=== PATIENT | female | born 1940 | race American Indian/Alaskan Native ===

== ENCOUNTER 2017-04-26 13:52 | Emergency (ER) | payer MEDICARE, MEDICAID ==
[2017-04-26 13:53] VITALS: BMI 31.2
[2017-04-26 14:06] VITALS: TEMP 97.9
--- NOTE | 2017-04-26 15:04 | ED PDOC ---
Arrival/HPI <Leeroy Belle - Last Filed: 04/26/17 18:21> <ElenaIsaiah - Last Filed: 04/26/17 19:18> - General Chief Complaint: ENT Problem Time Seen by Provider: 04/26/17 14:51 - History of Present Illness Narrative History of Present Illness (Text): CC: Pain behind R ear and Gland swelling on R x 1 d This patient is a 76yo F w/ a PMhx of DM, HTN, HLD, previous stroke with intermittent left sided upper extremity defecits, previous AL 30 years ago, who is coming to the ED after 1d history of the above complaint. She denies fevers/ chills, MANZANO, CP, SOB, abdominal pain, N/V/D, dysuria/freq/urg or lower extremity pain/swelling. She has no sick contacts. Denies pus coming from ear. Denies pain in earlobe. denies changes in hearing. 04/26/17 15:02 (Leeroy Belle) Past Medical History - Provider Review Nursing Documentation Reviewed: Yes - Travel History Have you recently traveled outside [place] w/in the past 3 mons?: No - Past History Past History: No Previous - Infectious Disease Hx of Infectious Diseases: None - Tetanus Immunization Tetanus Immunization: Unknown - Cardiac Hx Cardiac Disorders: Yes Hx Hypertension: Yes - Pulmonary Hx Respiratory Disorders: Yes Hx Asthma: Yes - Neurological Hx Neurological Disorder: No - HEENT Hx HEENT Disorder: No - Renal Hx Renal Disorder: No Hx Dialysis: No Hx Kidney Stones: No - Endocrine/Metabolic Hx Endocrine Disorders: Yes Hx Diabetes Mellitus Type 2: Yes Hx Hypothyroidism: Yes - Hematological/Oncological Hx Blood Disorders: No - Integumentary Hx Dermatological Disorder: No - Musculoskeletal/Rheumatological Hx Musculoskeletal Disorders: No - Gastrointestinal Hx Gastrointestinal Disorders: No - Genitourinary/Gynecological Hx Genitourinary Disorders: No - Psychiatric Hx Psychophysiologic Disorder: No Hx Anxiety: No Hx Depression: No Hx Substance Use: No - Surgical History Other/Comment: right breast cyst removal - Anesthesia Hx Anesthesia: Yes Hx Anesthesia Reactions: No Hx Malignant Hyperthermia: No - Suicidal Assessment Feels Threatened In Home Enviroment: No <Leeroy Belle - Last Filed: 04/26/17 18:21> Family/Social History - Physician Review Nursing Documentation Reviewed: Yes Family/Social History: CVA/TIA, Diabetes, Hypertension, CAD/AL Smoking Status: Never Smoked Hx Alcohol Use: No Hx Substance Use: No Hx Substance Use Treatment: No <Leeroy Belle - Last Filed: 04/26/17 18:21> Allergies/Home Meds <Leeroy Belle - Last Filed: 04/26/17 18:21> <ElenaRupeshsocrates - Last Filed: 04/26/17 19:18> Allergies/Adverse Reactions: Allergies No Known Allergies Allergy (Verified 04/26/17 14:05) Home Medications: Home Meds Medication Instructions Recorded Confirmed Fluticasone Propionate [Flovent 2 puff IH PRN PRN 10/10/14 04/26/17 Hfa] Levothyroxine [Synthroid] 0.075 mg PO DAILY 10/10/14 04/26/17 Metoprolol Tartrate [Lopressor] 25 mg PO BID 02/14/16 04/26/17 SITagliptin [Januvia] 50 mg PO DAILY 02/14/16 04/26/17 Valsartan [Diovan] 160 mg PO DAILY 02/14/16 04/26/17 Aspirin [Aspirin Chewable] 81 mg PO DAILY 04/26/17 04/26/17 Ranolazine [Ranexa] 0 mg PO DAILY 04/26/17 04/26/17 Review of Systems - Review of Systems Constitutional: absent: Fatigue, Weight Change Eyes: absent: Vision Changes ENT: TMJ Pain. absent: Hearing Changes, Tinnitus, Voice Changes, Sore Throat, Rhinorrhea, Epistaxis, Sinus Congestion Respiratory: absent: SOB, Cough, Sputum Cardiovascular: absent: Chest Pain, Palpitations Gastrointestinal: absent: Abdominal Pain Genitourinary Female: absent: Dysuria, Frequency Musculoskeletal: absent: Arthralgias, Back Pain Skin: absent: Rash, Pruritis, Skin Lesions Neurological: absent: Headache, Dizziness, Focal Weakness, Speech Changes, Facial Droop, Disequilibrium, Seizure Endocrine: absent: Diaphoresis Hemo/Lymphatic: absent: Adenopathy Psychiatric: absent: Anxiety, Depression <Leeroy Belle - Last Filed: 04/26/17 18:21> Physical Exam Vital Signs Reviewed: Yes Temperature: Afebrile Blood Pressure: Normal Pulse: Regular Respiratory Rate: Normal Appearance: Positive for: Well-Appearing, Non-Toxic, Comfortable Pain Distress: None Mental Status: Positive for: Alert and Oriented X 3 - Systems Exam Head: Present: Atraumatic, Normocephalic, Tenderness (behind the right ear on the mastoid, parotid enlargement and tenderness to palpation) Pupils: Present: PERRL Extroacular Muscles: Present: EOMI Conjunctiva: Present: Normal Ears: Present: NORMAL TM Mouth: Present: Moist Mucous Membranes. No: Dry, Normal Teeth Pharnyx: No: ERYTHEMA, EXUDATE, TONSILS ENLARGED Nose (External): No: Atraumatic Neck: Present: Normal Range of Motion, Lymphadenopathy (right parotid gland ). No: Meningeal Signs, MIDLINE TENDERNESS, Paraspinal Tenderness, JVD Respiratory/Chest: Present: Clear to Auscultation, Good Air Exchange. No: Respiratory Distress Cardiovascular: Present: Regular Rate and Rhythm, Normal S1, S2. No: Murmurs Abdomen: Present: Normal Bowel Sounds. No: Tenderness, Distention, Peritoneal Signs Back: No: CVA Tenderness Upper Extremity: Present: Normal Inspection. No: Cyanosis, Edema Lower Extremity: Present: Normal Inspection. No: Edema, CALF TENDERNESS Neurological: Present: GCS=15, CN II-XII Intact, Speech Normal Skin: Present: Warm Psychiatric: Present: Alert <Leeroy Belle - Last Filed: 04/26/17 18:21> Vital Signs Temp Pulse Resp BP Pulse Ox 04/26/17 18:02 63 16 140/70 100 04/26/17 16:15 60 18 150/93 H 100 04/26/17 14:02 97.9 F 75 16 149/88 98 Medical Decision Making <Leeroy Belle - Last Filed: 04/26/17 18:21> <Isaiah Parker - Last Filed: 04/26/17 19:18> ED Course and Treatment: 04/26/17 15:05 DDX Mastoiditis vs Sialadenitis Maxillofacial CT and Mastoid CT w/ Contrast CBC CMP VBG Lactate and Blood cultures patient is comfortable with normal VSS dispo and reassess 04/26/17 15:35 VBG lactate WNL 04/26/17 16:06 FLAKO; will change CT to non contrast still pending non contrast negative GRPA strep blood work unremarkable 04/26/17 17:35 patient was requesting to leave [facility] because son needs to leave and patient does not have enough money for a cab to get back patient is still undecided about wanting to leave or not will reassess 04/26/17 18:21 CT Scan negative for mastoiditis Will send on Augmentin 875 BID for 7 days Will give ENT follow up patient is stable for discharge as per Dr. Parker sent IGG IGM for Mumps; patient can follow up for results does not hold her for discharge (Leeroy Belle) 04/26/17 19:14 Patient with noted history with area of noted swelling; imaging is nondiagnostic - will dc/ on augmentin and f/u ENT. (Isaiah Parker) - Lab Interpretations Lab Results: 04/26/17 15:15 04/26/17 15:15 Lab Results 04/26/17 15:15: Grp A Beta Strep Ag Negative 04/26/17 15:15: Sodium 143, Chloride 103, Potassium 4.3, Carbon Dioxide 30, Anion Gap 14, BUN 17, Creatinine 1.4 H, Est GFR ( Amer) 44, Est GFR (Non- Af Amer) 36, Random Glucose 145 H, Calcium 10.2, Total Bilirubin 0.9, AST 33, ALT 35, Alkaline Phosphatase 83, Total Protein 8.3, Albumin 4.7, Globulin 3.6, Albumin/Globulin Ratio 1.3 04/26/17 15:15: pO2 24 L, VBG pH 7.33, VBG pCO2 58.0, VBG HCO3 30.6 H, VBG Total CO2 32.4 H, VBG O2 Sat (Calc) 44.6, VBG Base Excess 3.2 H, VBG Potassium 4.3, Sodium 141.0, Chloride 106.0, Glucose 142 H, Lactate 1.0, FiO2 21.0, Venous Blood Potassium 4.3 04/26/17 15:15: WBC 5.3 D, RBC 4.04, Hgb 13.3, Hct 39.7, MCV 98.3, MCH 32.9, MCHC 33.5, RDW 13.2, Plt Count 252, MPV 9.3, Gran % 56.0, Lymph % (Auto) 32.6, [place] % (Auto) 7.4 H, Eos % (Auto) 3.8, Baso % (Auto) 0.2, Gran # 2.95, Lymph # 1.7, [place] # 0.4, Eos # 0.2, Baso # 0.01 - RAD Interpretation Radiology Orders: 04/26/17 16:06 MASTOIDS W/O CONTRAST [CT] Stat MAXILLOFACIAL W/O CONTRAST [CT] Stat - Medication Orders Current Medication Orders: Discontinued Medications Acetaminophen (Tylenol 325mg Tab) 975 mg PO STAT STA Stop: 04/26/17 16:25 Last Admin: 04/26/17 16:33 Dose: 975 mg - PA / 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 / has examined the patient and agrees with the treatment plan. <Isaiah Parker - Last Filed: 04/26/17 19:18> Disposition/Present on Arrival - Present on Arrival Any Indicators Present on Arrival: No History of DVT/PE: No History of Uncontrolled Diabetes: No Urinary Catheter: No History of Decub. Ulcer: No History Surgical Site Infection Following: None - Disposition Have Diagnosis and Disposition been Completed?: Yes Disposition Time: 18:22 Patient Plan: Discharge <Leeroy Belle - Last Filed: 04/26/17 18:21> <Isaiah Parker - Last Filed: 04/26/17 19:18> - Disposition Diagnosis: Sialadenitis Disposition: HOME/ ROUTINE Condition: FAIR Discharge Instructions (ExitCare): Sialoadenitis (ED) Additional Instructions: Please make sure to taken your Augmentin, twice a day, for 7 days, until all the pills are gone Also take Florastor, probiotic, daily, to prevent infectious diarrhea while on antibiotics Please follow up with ENT and your PMD It was a pleasure taking care of you Please feel better Prescriptions: Amoxicillin/Clavulanate [Augmentin 875 MG-125 MG] 1 tab PO BID 7 Days #14 tab Saccharomyces Boulardii [Florastor 33 mg-250 mg] 1 cap PO DAILY 7 Days #7 cap Referrals: PCP,NO [Primary Care Provider] - Follow up with primary Forms: [employer] (Turkish)
[2017-04-26 15:30] LABS: VENOUS BLOOD GAS BASE EXCESS 3.2 mmol/L (0.0-2.0); VENOUS BLOOD PH 7.33 (7.32-7.43)
[2017-04-26 15:43] LABS: BASO # 0.01 K/mm3 (0.0-2.0); BASO % 0.2 % (0.0-3.0); EOS # 0.2 (0.0-0.7); EOS % 3.8 % (1.5-5.0); GRAN # 2.95 (1.4-6.5); HEMATOCRIT 39.7 % (36.0-48.0); LYMPH # 1.7 (1.2-3.4); LYMPH % 32.6 % (22.0-35.0); MEAN CELL VOLUME 98.3 fl (80.0-105.0); MEAN CORPUSCULAR HEMOGLOBIN 32.9 pg (25.0-35.0); MEAN CORPUSCULAR HGB CONC 33.5 g/dl (31.0-37.0); MEAN PLATELET VOLUME 9.3 fl (7.0-11.0); MONO # 0.4 (0.1-0.6); MONO % 7.4 % (1.0-6.0); RED CELL DISTRIBUTION WIDTH 13.2 % (11.5-14.5); WHITE BLOOD COUNT 5.3 10^3/ul (4.5-11.0)
[2017-04-26 15:47] LABS: ALB/GLOB RATIO 1.3 (1.1-1.8); BILIRUBIN,TOTAL 0.9 mg/dL (0.2-1.3); CALCIUM 10.2 mg/dL (8.4-10.5); POTASSIUM 4.3 mmol/L (3.6-5.0); TOTAL PROTEIN 8.3 g/dL (5.8-8.3)
[2017-04-26 16:16] VITALS: O2SAT 100
[2017-04-26 18:05] VITALS: BP 140/70; PULSE 63; RESP 16
--- NOTE | 2017-04-26 18:10 | CT ---
PROCEDURE: CT MAXILLOFACIAL BONES WITHOUT CONTRAST HISTORY: ear pain COMPARISON: None TECHNIQUE: Contiguous axial CT images of the maxillofacial bones were obtained. Coronal and sagittal reformats were generated. Radiation dose: Total exam DLP = 793.07 mGy-cm. This CT exam was performed using one or more of the following dose reduction techniques: Automated exposure control, adjustment of the mA and/or kV according to patient size, and/or use of iterative reconstruction technique. FINDINGS: NASAL BONES: The nasal bones are intact. ORBITS: No evidence of orbital fracture or destructive lesion. . PARANASAL SINUSES/ MASTOIDS: The paranasal sinuses are well developed and well aerated without fluid level. There is a small retention cyst/ polyp in the left maxillary sinus. MAXILLA: No acute maxillofacial fracture or destructive bony lesion. The pre maxillary soft tissues are normal. MANDIBLE/ TEMPOROMANDIBULAR JOINTS: No evidence of mandibular fracture or bony lesion. 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 SKULL BASE: Unremarkable. TEMPORAL BONES: Middle ears and mastoid grossly unremarkable. OTHER FINDINGS: None. IMPRESSION: No evidence of acute sinusitis, facial cellulitis or any significant abnormality to explain patient's ear pain.
--- NOTE | 2017-04-26 18:14 | CT ---
PROCEDURE: CT OF THE TEMPORAL BONES WITHOUT CONTRAST HISTORY: ear pain COMPARISON: None available. TECHNIQUE: High resolution axial images of the temporal bones were obtained. Coronal and sagittal reformats were generated. Radiation dose: Total exam DLP = 499.44 mGy-cm. This CT exam was performed using one or more of the following dose reduction techniques: Automated exposure control, adjustment of the mA and/or kV according to patient size, and/or use of iterative reconstruction technique. FINDINGS: RIGHT TEMPORAL BONE: RIGHT MIDDLE EAR: Normal. RIGHT INNER EAR: Cochlea: Normal. Semicircular canals: Normal. RIGHT MASTOID AIR CELLS: Normal. RIGHT INTERNAL AUDITORY CANAL: Normal. RIGHT EXTERNAL AUDITORY CANAL: Normal. RIGHT VESTIBULAR AND COCHLEAR AQUEDUCT: Normal. OTHER FINDINGS: None. LEFT TEMPORAL BONE: LEFT MIDDLE EAR: Normal. LEFT INNER EAR: Cochlea: Normal. Semicircular canals: Normal. LEFT MASTOID AIR CELLS: Normal. LEFT INTERNAL AUDITORY CANAL: Normal. LEFT EXTERNAL AUDITORY CANAL: Normal. LEFT VESTIBULAR AND COCHLEAR AQUEDUCTS: Normal. OTHER FINDINGS: None. IMPRESSION: No evidence of acute mastoiditis, otitis media or otitis externa. Essentially normal CT scan of the mastoids.
== END 2017-04-26 18:31 | disposition home or self-care (01) ==
LOC: ED 13:52
DX: K11.20 Sialoadenitis, unspecified (principal); E03.9 Hypothyroidism, unspecified; E11.9 Type 2 diabetes mellitus without complications; E78.5 Hyperlipidemia, unspecified; I10 Essential (primary) hypertension

== ENCOUNTER 2017-07-24 13:36 | Emergency (ER) | payer MEDICARE, MEDICAID ==
[2017-07-24 14:15] VITALS: BMI 28.3
[2017-07-24 14:26] VITALS: RESP 18
[2017-07-24] MEDS ORDERED: Albuterol 0.5% Inhal Sol (2.5 mg/0.5 ml) UD IH STA (14:43)
--- NOTE | 2017-07-24 15:03 | ED PDOC ---
Arrival/HPI - General Chief Complaint: Flu-like Symptoms Time Seen by Provider: 07/24/17 14:20 Historian: Patient - History of Present Illness Narrative History of Present Illness (Text): 07/24/17 14:20 Christopher oMntes is a 77 year old female, whose past medical history includes diabetes, hypertension, hypothyroidism, high cholesterol, CVA (left arm weakness residual), UT, and asthma, who presents to emergency department complaining of coughing with intermittent episodes of vomiting and diarrhea, rhinorrhea, and slight fever for the past 3 days. Patient denies any chest pain , shortness of breath, urinary symptoms, back pain, neck pain, headache, dizziness, or any other complaints. PMD: Dr. Mariscal Time/Duration: < week Symptom Onset: Gradual Symptom Course: Unchanged Severity Level: Mild Activities at Onset: Light Context: Home Past Medical History - Provider Review Nursing Documentation Reviewed: Yes - Past History Past History: No Previous - Infectious Disease Hx of Infectious Diseases: None - Tetanus Immunization Tetanus Immunization: Unknown - Reproductive Menopause: Yes - Cardiac Hx Cardiac Disorders: Yes Hx Hypertension: Yes - Pulmonary Hx Respiratory Disorders: Yes Hx Asthma: Yes - Neurological Hx Neurological Disorder: No - HEENT Hx HEENT Disorder: No - Renal Hx Renal Disorder: No Hx Dialysis: No Hx Kidney Stones: No - Endocrine/Metabolic Hx Endocrine Disorders: Yes Hx Diabetes Mellitus Type 2: Yes Hx Hypothyroidism: Yes - Hematological/Oncological Hx Blood Disorders: No - Integumentary Hx Dermatological Disorder: No - Musculoskeletal/Rheumatological Hx Musculoskeletal Disorders: No - Gastrointestinal Hx Gastrointestinal Disorders: No - Genitourinary/Gynecological Hx Genitourinary Disorders: No - Psychiatric Hx Psychophysiologic Disorder: No Hx Anxiety: No Hx Depression: No Hx Substance Use: No - Surgical History Other/Comment: right breast cyst removal - Anesthesia Hx Anesthesia: Yes Hx Anesthesia Reactions: No Hx Malignant Hyperthermia: No - Suicidal Assessment Feels Threatened In Home Enviroment: No Family/Social History - Physician Review Nursing Documentation Reviewed: Yes Family/Social History: No Known Family HX Smoking Status: Never Smoked Hx Alcohol Use: No Hx Substance Use: No Hx Substance Use Treatment: No Allergies/Home Meds Allergies/Adverse Reactions: Allergies No Known Allergies Allergy (Verified 07/24/17 14:21) Home Medications: Home Meds Medication Instructions Recorded Confirmed Fluticasone Propionate [Flovent 2 puff IH PRN PRN 10/10/14 07/24/17 Hfa] Levothyroxine [Synthroid] 0.075 mg PO DAILY 10/10/14 07/24/17 Metoprolol Tartrate [Lopressor] 25 mg PO BID 02/14/16 07/24/17 SITagliptin [Januvia] 50 mg PO DAILY 02/14/16 07/24/17 Valsartan [Diovan] 160 mg PO DAILY 02/14/16 07/24/17 Aspirin [Aspirin Chewable] 81 mg PO DAILY 04/26/17 07/24/17 Ranolazine [Ranexa] 0 mg PO DAILY 04/26/17 07/24/17 Review of Systems - Physician Review All systems were reviewed & negative as marked: Yes - Review of Systems Constitutional: Fevers Eyes: absent: Vision Changes ENT: Rhinorrhea. absent: Hearing Changes Respiratory: Cough. absent: SOB Cardiovascular: absent: Chest Pain Gastrointestinal: Diarrhea, Vomiting Genitourinary Female: absent: Dysuria, Frequency Musculoskeletal: absent: Arthralgias Skin: absent: Rash, Pruritis Neurological: absent: Headache, Dizziness Endocrine: absent: Diaphoresis, Polyuria Hemo/Lymphatic: absent: Adenopathy Psychiatric: absent: Anxiety, Depression Physical Exam Vital Signs Reviewed: Yes Vital Signs Temp Pulse Resp BP Pulse Ox 07/24/17 16:44 99.2 F 76 18 145/88 97 07/24/17 15:31 81 18 153/68 H 100 07/24/17 14:18 100.1 F H 97 H 18 155/101 H 99 Temperature: Febrile Blood Pressure: Hypertensive Pulse: Regular Respiratory Rate: Normal Appearance: Positive for: Well-Appearing, Non-Toxic, Comfortable Mental Status: Positive for: Alert and Oriented X 3 - Systems Exam Head: Present: Atraumatic, Normocephalic Pupils: Present: PERRL Extroacular Muscles: Present: EOMI Conjunctiva: Present: Normal Mouth: Present: Moist Mucous Membranes Pharnyx: Present: Normal, Other (MMM). No: ERYTHEMA, EXUDATE Nose (Internal): Present: Other (nasal congestion) Neck: Present: Normal Range of Motion Respiratory/Chest: Present: Clear to Auscultation, Good Air Exchange. No: Respiratory Distress, Accessory Muscle Use Cardiovascular: Present: Regular Rate and Rhythm, Normal S1, S2. No: Murmurs Abdomen: Present: Normal Bowel Sounds. No: Tenderness, Distention, Peritoneal Signs Back: Present: Normal Inspection Upper Extremity: Present: Normal Inspection. No: Cyanosis, Edema Lower Extremity: Present: Normal Inspection. No: Edema Neurological: Present: GCS=15, CN II-XII Intact, Speech Normal Skin: Present: Warm, Dry, Normal Color. No: Rashes Psychiatric: Present: Alert, Oriented x 3, Normal Insight, Normal Concentration Medical Decision Making ED Course and Treatment: 07/24/17 15:04 Impression: 77 year old female complaining of multiple episodes of vomiting and coughs with associated diarrhea, rhinorrhea, and slight fever for the past 3 days. Differential Diagnosis included but are not limited to: Influenza Plan: -- EKG -- Chest X-ray -- Blood Culture -- Labs -- Albuterol and Zofran -- Reassess and disposition Prior Visits: Notes and results from previous visits were reviewed. Patient was last seen in the emergency department on 04/26/17 for intermittent left sided upper extremity defecits. Patient was discharged home. Progress Notes: EKG: Ordered, reviewed, and independently interpreted the EKG. Rate : 87 BPM Rhythm : NSR Interpretation : No ST-segment elevations or depressions, no T-wave inversions, normal intervals. Comparison : No previous EKG for comparison. 07/24/17 15:10 Chest X-ray: Creator : Muna Luong MD FINDINGS: LUNGS:The lungs are well inflated and clear. PLEURA:No significant pleural effusion identified, no pneumothorax apparent. CARDIOVASCULAR:Normal. OSSEOUS STRUCTURES:No significant abnormalities. VISUALIZED UPPER ABDOMEN:Normal. OTHER FINDINGS:None. IMPRESSION: No active pulmonary disease. 07/24/17 16:16 On reevaluation, Patient's lungs continue to be clear, no wheezing, no rhonchi, no rales. Oxy sat 97% RA. Clear instructions to stay well hydrated and to take Tamiflu and Tylenol for fever. Also to return if patient experienced respiratory distress or any concerns. - Lab Interpretations Lab Results: 07/24/17 15:33 07/24/17 15:33 Lab Results 07/24/17 15:33: Influenza Typ A,B (EIA) Pos for influenza a H 07/24/17 15:33: Sodium 137, Potassium 4.2, Chloride 100, Carbon Dioxide 26, Anion Gap 15, BUN 13, Creatinine 1.1, Est GFR ( Amer) 58, Est GFR (Non- Af Amer) 48, Random Glucose 173 H, Calcium 9.3 07/24/17 15:33: WBC 3.8 L D, RBC 3.78, Hgb 12.2, Hct 36.8, MCV 97.4, MCH 32.3, MCHC 33.2, RDW 13.2, Plt Count 191, MPV 9.7, Gran % 66.7, Lymph % (Auto) 18.3 L , [place] % (Auto) 14.7 H, Eos % (Auto) 0.0 L, Baso % (Auto) 0.3, Gran # 2.55, Lymph # 0.7 L, [place] # 0.6, Eos # 0.0, Baso # 0.01 07/24/17 15:28: POC Glucose (mg/dL) 176 H I have reviewed the lab results: Yes - RAD Interpretation Radiology Orders: 07/24/17 14:27 CHEST PORTABLE [RAD] Stat - Medication Orders Current Medication Orders: Discontinued Medications Albuterol Sulfate (Albuterol 0.5% Inhal Ana (2.5 Mg/0.5 Ml) Ud) 2.5 mg IH STAT STA Stop: 07/24/17 14:44 Last Admin: 07/24/17 15:16 Dose: 2.5 mg Ondansetron HCl (Zofran Inj) 4 mg IVP STAT STA Stop: 07/24/17 14:46 Last Admin: 07/24/17 15:16 Dose: 4 mg IVP Administration Document 07/24/17 15:16 OCS (Rec: 07/24/17 15:16 [facility]CS [id number]) Charges for Administration # of IVP Administrations 1 Oseltamivir Phosphate (Tamiflu Cap) 75 mg PO STAT STA PRN Reason: Protocol Stop: 07/24/17 16:14 Last Admin: 07/24/17 16:35 Dose: 75 mg - Scribe Statement The provider has reviewed the documentation as recorded by the Scribe Amrita Crystal Provider Scribe Attestation: All medical record entries made by the Scribe were at my direction and personally dictated by me. I have reviewed the chart and agree that the record accurately reflects my personal performance of the history, physical exam, medical decision making, and the department course for this patient. I have also personally directed, reviewed, and agree with the discharge instructions and disposition. Disposition/Present on Arrival - Present on Arrival Any Indicators Present on Arrival: No History of DVT/PE: No History of Uncontrolled Diabetes: No Urinary Catheter: No History of Decub. Ulcer: No History Surgical Site Infection Following: None - Disposition Have Diagnosis and Disposition been Completed?: Yes Diagnosis: Influenza Disposition: HOME/ ROUTINE Disposition Time: 16:30 Patient Plan: Discharge Condition: IMPROVED Discharge Instructions (ExitCare): Influenza (ED) Additional Instructions: Ms Montes, thank you for letting us take care of you today. Your provider was Dr. Taylor. You were treated for Influenza. The emergency medical care you received today was directed at your acute symptoms. If you were prescribed any medication, please fill it and take as directed. It may take several days for your symptoms to resolve. Return to the Emergency Department if your symptoms worsen, do not improve, or if you have any other problems. Please contact your doctor or call one of the physicians/clinics you have been referred to that are listed on the Patient Visit Information form that is included in your discharge packet. Bring any paperwork you were given at discharge with you along with any medications you are taking to your follow up visit. Our treatment cannot replace ongoing medical care by a primary care provider (PCP) outside of the emergency department. Thank you for allowing the [facility] team to be part of your care today. If you had an X-Ray or CT scan: A Radiologist will review the ED reading if any change in treatment is needed we will contact you. If you had a blood, urine, or wound culture: It will take several days for the results, if any change in treatment is needed we will contact you. If you had an STI test: It will take 48 hours for the results. Please call after 1 week if you have not heard back. Prescriptions: Acetaminophen [Tylenol 325mg tab] 650 mg PO Q4 #60 tab Oseltamivir Phosphate [Tamiflu] 75 mg PO BID #10 capsule Referrals: Navneet Mariscal DO [Primary Care Provider] - Follow up with primary Forms: [employer] (Mexican)
--- NOTE | 2017-07-24 15:08 | RAD ---
HISTORY: cough r/o pna COMPARISON: 02/14/2016. FINDINGS: LUNGS: The lungs are well inflated and clear. PLEURA: No significant pleural effusion identified, no pneumothorax apparent. CARDIOVASCULAR: Normal. OSSEOUS STRUCTURES: No significant abnormalities. VISUALIZED UPPER ABDOMEN: Normal. OTHER FINDINGS: None. IMPRESSION: No active pulmonary disease.
[2017-07-24 15:48] LABS: BASO # 0.01 K/mm3 (0.0-2.0); BASO % 0.3 % (0.0-3.0); GRAN # 2.55 (1.4-6.5); GRAN % 66.7 % (50.0-68.0); HEMOGLOBIN 12.2 g/dL (12.0-16.0); LYMPH # 0.7 (1.2-3.4); LYMPH % 18.3 % (22.0-35.0); MEAN CELL VOLUME 97.4 fl (80.0-105.0); MEAN CORPUSCULAR HEMOGLOBIN 32.3 pg (25.0-35.0); MEAN CORPUSCULAR HGB CONC 33.2 g/dl (31.0-37.0); MEAN PLATELET VOLUME 9.7 fl (7.0-11.0); MONO # 0.6 (0.1-0.6); MONO % 14.7 % (1.0-6.0); RBC 3.78 10^6/uL (3.5-6.1); RED CELL DISTRIBUTION WIDTH 13.2 % (11.5-14.5); WHITE BLOOD COUNT 3.8 10^3/ul (4.5-11.0)
[2017-07-24 15:58] LABS: CALCIUM 9.3 mg/dL (8.4-10.5)
[2017-07-24 16:44] VITALS: BP 145/88; PULSE 76; TEMP 99.2; O2SAT 97
--- NOTE | 2017-07-24 18:04 | CARD ---
APPROVED REPORT EKG Measurement Heart [id number] <Conclusion> Normal sinus rhythm Minimal voltage criteria for LVH, may be normal variant Borderline ECG
== END 2017-07-24 16:45 | disposition home or self-care (01) ==
LOC: ED 13:36
DX: J11.1 Influenza due to unidentified influenza virus with other respiratory manifestations (principal); I10 Essential (primary) hypertension; E11.9 Type 2 diabetes mellitus without complications
CPT/HCPCS: 71045; 80048; 82948; 85025; 87040; 87804; 93005; 96374; 99283; J2405

== ENCOUNTER 2017-07-29 18:30 | Inpatient (IN) | payer OTHER, MEDICAID ==
[2017-07-29 18:44] VITALS: BMI 29.5
[2017-07-29] MEDS ORDERED: Loperamide Hydrochloride 1 mg/5 ml Cup PO PRN (18:49)
[2017-07-29] MEDS ORDERED: Albuterol-Ipratrop 3 mg / 0.5 (3 ml) UD IH PRN (18:49)
[2017-07-29] MEDS ORDERED: Pneumococcal 23-Valent Vaccine IM ONE (19:20)
[2017-07-29] MEDS ORDERED: Influenza Vaccine 60 mcg/0.5 mL SYR (4YR UP) IM ONE (19:20)
[2017-07-29] MEDS: Budesonide 0.5 mg/2 ml Inhal Susp UD IH SCH (20:58)
[2017-07-29] MEDS: Albuterol-Ipratrop 3 mg / 0.5 (3 ml) UD IH SCH (20:58)
[2017-07-29] MEDS: MethylPREDNISolone 40 mg Vial IVP SCH (21:27)
[2017-07-29] MEDS: Oseltamivir 6 MG/ML PO SCH (21:27)
[2017-07-29] MEDS: Insulin Reg-MEDIUM-Coverage SC SCH (21:28)
[2017-07-30] MEDS: Albuterol-Ipratrop 3 mg / 0.5 (3 ml) UD IH SCH ×4 (03:00→21:33)
[2017-07-30] MEDS: Levothyroxine 75 MCG TAB PO SCH (05:26)
[2017-07-30] MEDS: Pantoprazole 40 mg EC Tab PO SCH (05:26)
[2017-07-30] MEDS: Insulin Reg-MEDIUM-Coverage SC SCH (06:30)
[2017-07-30 07:14] LABS: GRAN # 7.19 (1.4-6.5); GRAN % 83.4 % (50.0-68.0); HEMOGLOBIN 11.7 g/dL (12.0-16.0); LYMPH # 1.1 (1.2-3.4); MEAN CELL VOLUME 95.4 fl (80.0-105.0); MEAN CORPUSCULAR HEMOGLOBIN 31.6 pg (25.0-35.0); MEAN CORPUSCULAR HGB CONC 33.1 g/dl (31.0-37.0); MEAN PLATELET VOLUME 10.1 fl (7.0-11.0); MONO # 0.3 (0.1-0.6); MONO % 3.6 % (1.0-6.0); RBC 3.7 10^6/uL (3.5-6.1); RED CELL DISTRIBUTION WIDTH 12.8 % (11.5-14.5); WHITE BLOOD COUNT 8.6 10^3/ul (4.5-11.0)
[2017-07-30] MEDS: Budesonide 0.5 mg/2 ml Inhal Susp UD IH SCH ×2 (07:16→21:33)
[2017-07-30 07:36] LABS: ALB/GLOB RATIO 1.1 (1.1-1.8); ALBUMIN 3.6 g/dL (3.0-4.8); ALT/SGPT 31 U/L (7-56); AST/SGOT 22 U/L (14-36); BLOOD UREA NITROGEN 24 mg/dL (7-21); CALCIUM 9.6 mg/dL (8.4-10.5); GFR AFRICAN-AMERICAN > 60; GFR NON-AFRICAN AMERICAN 53
[2017-07-30] MEDS: Multi Vitamins 15 mL UD Oral Solution PO SCH (08:19)
[2017-07-30] MEDS: Home Med 1 UNIT PO SCH ×2 (09:10→09:11)
[2017-07-30] MEDS: MethylPREDNISolone 40 mg Vial IVP SCH ×2 (10:38→21:55)
[2017-07-30] MEDS: Oseltamivir 6 MG/ML PO SCH ×2 (10:57→21:56)
[2017-07-30] MEDS: Insulin Reg-HIGH-Coverage SC SCH ×3 (12:19→21:57)
--- NOTE | 2017-07-30 22:33 | HP ---
HISTORY OF PRESENT ILLNESS: She was admitted to the hospital side after she was dizzy and weak, cough, congestion, upper abdominal pain on the right side, and after a few days in the hospital side, she was able to be transferred to the TCU, where we are admitting her to. She is a 77-year-old female, not feeling well, weak, right upper quadrant pain, shortness of breath, and dizzy. PAST MEDICAL HISTORY: She has a past medical history of diabetes, asthma, prior CT, hypertension. FAMILY HISTORY: Unknown. SOCIAL HISTORY: Never smoked. No alcohol. No drugs. ALLERGIES: NO KNOWN DRUG ALLERGIES. MEDICATIONS: She is on Flovent, Synthroid, Lopressor, Januvia, Diovan, aspirin, and Ranexa. She is sitting out of bed to chair. She is a little bit stronger than she was when she got here. Still with a little bit of a cough, but not short of breath as she was. No chest pain or palpitations. She has some right upper quadrant pain, but this has been bad when she came in. No nausea, vomiting, constipation, diarrhea, and she is eating better. No problems urinating. Some back pain from time to time. No rashes or ulcers appreciated. The dizziness is there, but not as bad and no headache. No anxiety and no depression. PHYSICAL EXAMINATION: VITAL SIGNS: She has a 98.2 temperature, 60 pulse, 120/68 blood pressure, 16 respiratory rate, and 96% O2 sat on room air. HEENT: Her head is atraumatic and normocephalic. Throat is moist. NECK: Supple. Thyroid midline. No palpable, appreciable lymphadenopathy. HEART: Regular rate. LUNGS: Decreased breath sounds. Decrease in wheezing, much better. Poor inspiration, but breathing better. No wheezes or rhonchi or rales really. ABDOMEN: Soft, nontender. Positive bowel sounds. The right upper quadrant pain is lessened. EXTREMITIES: No edema, but she is weak, getting stronger. She has been getting a few days of physical therapy. NEUROLOGICAL: GCS of 15. Cranial nerves II through XII grossly intact. SKIN: Warm and dry. Normal speech. No apparent rashes or ulcers. LABORATORY DATA: She has a 136 sodium, potassium 4.3, BUN is 24, creatinine 1, GFR is 53, sugar is 269, calcium is 9.6. Total bili is 0.6, AST is 22, ALT is 31, alk phos 66, total protein 6.9, albumin is 3.6. White count is 8.6, hemoglobin 11.7, hematocrit 35.3, platelets of 233. CURRENT MEDICATIONS: She is currently on Cozaar, DuoNebs, Ecotrin, insulin, Imodium, Januvia, Lopressor, vitamins, Norvasc, Protonix, budesonide -- Pulmicort, Solu-Medrol, Synthroid, Tamiflu. RECOMMENDATIONS: She will be on more day of Solu-Medrol and tomorrow, I will change her to prednisone. She will have consults with Cardio Surgery and Pulmonary. She will get physical therapy. She will also get insulin coverage. Hopefully, she will do well and improve. She had asthma, right upper quadrant pain, diabetes, weakness, influenza, hypertension, CAD. Teddy Franklin DO
[2017-07-31] MEDS: Albuterol-Ipratrop 3 mg / 0.5 (3 ml) UD IH SCH ×4 (01:57→20:09)
[2017-07-31] MEDS: Levothyroxine 75 MCG TAB PO SCH (06:21)
[2017-07-31] MEDS: Pantoprazole 40 mg EC Tab PO SCH (06:21)
[2017-07-31] MEDS: Insulin Reg-HIGH-Coverage SC SCH ×4 (06:55→22:09)
--- NOTE | 2017-07-31 08:47 | PN ---
DATE: 07/31/2017 PULMONARY NOTE SUBJECTIVE: Patient appears very comfortable this morning. She is not short of breath at rest. PHYSICAL EXAMINATION: VITAL SIGNS (Last noted in the computer): Temperature 97.8, pulse 59, respirations 18, blood pressure 126/75. Oxygen saturation on room air is 98%. HEENT: Normocephalic, atraumatic. No JVD. CARDIOVASCULAR: Positive S1, S2. No S3 gallop. LUNGS: Very minimal/less rhonchi. No wheezing. EXTREMITIES: No clubbing, cyanosis or edema. Calves are nontender to palpation. GASTROINTESTINAL: Abdomen is soft, nontender and nondistended. Bowel sounds are positive. SKIN: No acute rash. NEUROLOGIC: Limited at the present time. IMPRESSION: 1. Acute bronchitis. 2. Asthma. 3. Recent flu. 4. Diabetes mellitus. PLAN: Patient appears very comfortable this morning. She is not short of breath at rest. She does state to feeling much better overall. On physical exam, her bronchospasm continues to resolve. In addition, the oxygen saturation on room air is now 98%. I will continue the current nebulizer treatments and change to oral steroids this morning. Patient remains on Tamiflu. There are no temperatures noted. Clinical status of the patient is significantly improved. I will discuss the above with Dr. Franklin. Dat Anderson MD AUTUMN
[2017-07-31] MEDS: Budesonide 0.5 mg/2 ml Inhal Susp UD IH SCH ×2 (08:57→20:19)
[2017-07-31] MEDS: Home Med 1 UNIT PO SCH ×2 (09:59→10:01)
[2017-07-31] MEDS: Multi Vitamins 15 mL UD Oral Solution PO SCH (10:01)
[2017-07-31] MEDS: Oseltamivir 6 MG/ML PO SCH ×2 (10:03→22:07)
[2017-08-01] MEDS: Albuterol-Ipratrop 3 mg / 0.5 (3 ml) UD IH SCH ×4 (02:05→20:58)
[2017-08-01] MEDS: Levothyroxine 75 MCG TAB PO SCH (06:00)
[2017-08-01] MEDS: Pantoprazole 40 mg EC Tab PO SCH (06:00)
[2017-08-01 07:14] LABS: HEMOGLOBIN 11.2 g/dL (12.0-16.0); MEAN CELL VOLUME 94.7 fl (80.0-105.0); MEAN CORPUSCULAR HEMOGLOBIN 31.4 pg (25.0-35.0); MEAN CORPUSCULAR HGB CONC 33.1 g/dl (31.0-37.0); MEAN PLATELET VOLUME 9.8 fl (7.0-11.0); RBC 3.57 10^6/uL (3.5-6.1); RED CELL DISTRIBUTION WIDTH 12.9 % (11.5-14.5); WHITE BLOOD COUNT 8.1 10^3/ul (4.5-11.0)
[2017-08-01] MEDS: Budesonide 0.5 mg/2 ml Inhal Susp UD IH SCH ×2 (07:27→20:58)
[2017-08-01 07:39] LABS: ALBUMIN 3.2 g/dL (3.0-4.8); CALCIUM 9.4 mg/dL (8.4-10.5)
[2017-08-01] MEDS: Insulin Reg-HIGH-Coverage SC SCH ×4 (07:54→21:26)
--- NOTE | 2017-08-01 08:11 | PN ---
DATE: 08/01/2017 PULMONARY NOTE SUBJECTIVE: The patient appears very comfortable this morning. She is not short of breath at rest. PHYSICAL EXAMINATION VITAL SIGNS: Temperature is 98.3, pulse 57, respirations 16, blood pressure 121/66. Oxygen saturation on room air is 97%. HEENT: Normocephalic, atraumatic. No JVD. CARDIOVASCULAR: Positive S1, S2. No S3 gallop. LUNGS: Clear bilaterally. EXTREMITIES: No clubbing, cyanosis or edema. Calves are nontender to palpation. GI: Abdomen is soft, nontender and nondistended. Bowel sounds are positive. SKIN: No acute rash. NEUROLOGIC: Limited at the present time. IMPRESSION: 1. Acute bronchitis. 2. Asthma. 3. Recent flu. 4. Diabetes mellitus. PLAN: The patient appears very comfortable this morning. She is not short of breath at rest. She does state to feeling much, much better overall. On physical exam, her lungs are now clear. Oxygen saturation on room air is 97%. I will continue the current nebulizer treatments and oral steroids (started yesterday) for now. Clinical status of the patient is significantly improved overall. I will discuss the above with Dr. Franklin. Dat Anderson MD MTDD
--- NOTE | 2017-08-01 08:15 | PN ---
DATE: 07/31/2017 SUBJECTIVE: I saw Christopher sitting out of bed to chair. She is quite comfortable. She is doing a bit better. Overall, she is in good spirits. She states she is constipated and wants an enema. Colace; Cozaar; DuoNebs; Ecotrin; insulin; Imodium, which was stopped; Januvia; Lopressor; ; Norvasc; prednisone; Protonix; Pulmicort; Synthroid and Tamiflu. PHYSICAL EXAMINATION: VITAL SIGNS: 97.8 temp, 59 pulse, 126/77 blood pressure, 18 respiratory rate, 98% O2 sat on room air. HEENT: Head is atraumatic, normocephalic. HEART: Regular rate. LUNGS: Clear to auscultation. ABDOMEN: Soft, mildly distended, decreased bowel sounds were present, full. EXTREMITIES: No edema. LABORATORY DATA: She has an 8.6 white count, 11.7 hemoglobin, 233 platelets. She has a 136 sodium, potassium 4.3, last blood sugar was 253, calcium is 9.6, total bili is 0.6, AST is 22, ALT is 31, alk phos is 66, total protein is 6.9. ASSESSMENT AND PLAN: So she is constipated, right upper quadrant pain and asthma. We will continue with aggressive treatment and care Teddy Franklin DO MTDTor
[2017-08-01] MEDS: Home Med 1 UNIT PO SCH ×2 (09:12→14:43)
--- NOTE | 2017-08-01 13:24 | PN ---
DATE: SUBJECTIVE: I saw her resting comfortably, sitting up in the bed. She is trying physical therapy. She is eating better. She is breathing better. Overall, she is improving. She is on Colace, Cozaar, DuoNebs, Ecotrin, Humulin, Januvia, Lopressor, multivitamin, Norvasc, prednisone, Protonix, Pulmicort, Synthroid, and Tamiflu. PHYSICAL EXAMINATION: VITAL SIGNS: She has a 98.3 temperature, 67 pulse, 121/66 blood pressure, 16 respiratory rate, 97% O2 sat on room air. HEENT: Head is atraumatic, normocephalic. HEART: Regular rate. LUNGS: Decreased breath sounds, but clear bilaterally. ABDOMEN: Soft, obese, nontender. EXTREMITIES: No edema. LABORATORY DATA: She has a 8.1 white count, 11.2 hemoglobin, 32.8 hematocrit with 219,000 platelets. She has a 135 sodium, potassium 4.1, BUN 25, creatinine 1.1, GFR is 48. Sugar is 217, has to adjust her diabetes 200. Calcium is 9.4, total bilirubin is 0.3, AST is 26, ALT is 28, alkaline phosphatase 68, total protein 6.3. ASSESSMENT AND PLAN: She is being seen by Pulmonary. She is on prednisone, a few more days of physical therapy, may be we can discharge her wants to go home. She is here for asthma, right upper quadrant pain, diabetes, and influenza. Teddy Franklin DO MTDD
[2017-08-01] MEDS: Multi Vitamins 15 mL UD Oral Solution PO SCH (14:46)
--- NOTE | 2017-08-01 15:00 | PN ---
DATE: Patient is comfortable in the TCU, getting better. The abdomen is soft, nontender. The swelling on the gallbladder tunnel. These would be followed as an outpatient, possibly to be resected. An MRI electively would be reasonable. I will be happy to see her in my office. Simon Burgess MD
[2017-08-01] MEDS: Oseltamivir 6 MG/ML PO SCH ×2 (15:36→21:25)
[2017-08-02] MEDS: Albuterol-Ipratrop 3 mg / 0.5 (3 ml) UD IH SCH ×4 (01:20→21:15)
[2017-08-02] MEDS: Levothyroxine 75 MCG TAB PO SCH (05:19)
[2017-08-02] MEDS: Pantoprazole 40 mg EC Tab PO SCH (05:19)
[2017-08-02] MEDS: Budesonide 0.5 mg/2 ml Inhal Susp UD IH SCH ×2 (07:27→21:15)
[2017-08-02] MEDS: Insulin Reg-HIGH-Coverage SC SCH ×4 (07:33→22:17)
--- NOTE | 2017-08-02 09:17 | PN ---
DATE: 08/02/2017 PULMONARY NOTE SUBJECTIVE: Patient appears very comfortable this morning. She is not short of breath at rest. PHYSICAL EXAMINATION: VITAL SIGNS: Temperature is 97.9, pulse 67, respirations 18, blood pressure 121/66. Oxygen saturation on room air is 98%. HEENT: Normocephalic, atraumatic. No JVD. CARDIOVASCULAR: Positive S1, S2. No S3 gallop. LUNGS: Minimal rhonchi appreciated. No wheezing. EXTREMITIES: No clubbing, cyanosis or edema. Calves are nontender to palpation. GASTROINTESTINAL: Abdomen is soft, nontender and nondistended. Bowel sounds are positive. SKIN: No acute rash. NEUROLOGIC: Limited at the present time. IMPRESSION: 1. Acute bronchitis. 2. Asthma. 3. Recent flu. 4. Diabetes mellitus. PLAN: Patient appears very comfortable this morning. She is not short of breath at rest. She does state to feeling much better overall. On physical exam, minimal rhonchi are noted. Oxygen saturation on room air is 98%. I will continue the current nebulizer treatments and low-dose oral steroids for now. Clinical status of the patient is significantly improved overall. Patient is reminded to be out of bed as much as possible. I will discuss the above with Dr. Franklin. Dat Anderson MD MTDD
[2017-08-02] MEDS: Home Med 1 UNIT PO SCH ×2 (10:23→10:24)
[2017-08-02] MEDS: Multi Vitamins 15 mL UD Oral Solution PO SCH (10:26)
--- NOTE | 2017-08-02 18:39 | PN ---
DATE: SUBJECTIVE: I saw Christopher resting comfortably in bed. She is having a breathing treatment. She tells me she is feeling well, she is walking well and she is not short of breath anymore. She is on Colace, Cozaar, DuoNeb, Ecotrin, insulin, Januvia which I increased to 100 from 50, Lopressor, vitamins, Norvasc, prednisone, she is on 30, Protonix, Pulmicort, Synthroid. PHYSICAL EXAMINATION: VITAL SIGNS: 97.9 temp, 67 pulse, 122/80 blood pressure, 18 respiratory rate and 99% O2 sat on room air. HEENT: Head is atraumatic, normocephalic. HEART: Regular rate. LUNGS: Decreased breath sounds with occasional congestion cough. ABDOMEN: Soft, obese, nontender. Positive bowel sounds. EXTREMITIES: No edema. LABORATORY DATA: She has 8.1 white count, 11.6 hemoglobin, 32.8 hematocrit with 219 platelets. 135 sodium, potassium 4.1, last blood sugar was 321 and it was as high as 419, I increased the Januvia to 100 and add more medication. AST is 26, ALT is 28, alk phos 53. She is being seen by Surgery and Pulmonology. She is tolerating physical therapy. She is here for asthma and swelling of the gallbladder which I think has improved. Teddy Franklin DO MTDD
[2017-08-03] MEDS: Albuterol-Ipratrop 3 mg / 0.5 (3 ml) UD IH SCH ×2 (01:14→08:24)
[2017-08-03] MEDS: Insulin Reg-HIGH-Coverage SC SCH ×2 (07:25→12:27)
[2017-08-03] MEDS: Pantoprazole 40 mg EC Tab PO SCH (07:25)
[2017-08-03] MEDS: Levothyroxine 75 MCG TAB PO SCH (07:26)
[2017-08-03] MEDS: Multi Vitamins 15 mL UD Oral Solution PO SCH (08:21)
[2017-08-03] MEDS: Budesonide 0.5 mg/2 ml Inhal Susp UD IH SCH (08:23)
--- NOTE | 2017-08-03 09:16 | PN ---
DATE: 08/03/2017 PULMONARY NOTE SUBJECTIVE: The patient appears very comfortable this morning. She is not short of breath at rest. PHYSICAL EXAMINATION VITAL SIGNS: Temperature is 97.2, pulse is 87, respirations 18, blood pressure 140/75. Oxygen saturation on room air is 98%. HEENT: Normocephalic, atraumatic. No JVD. CARDIOVASCULAR: Positive S1, S2. No S3 gallop. LUNGS: Minimal/less rhonchi. No wheezing. EXTREMITIES: No clubbing, cyanosis or edema. Calves are nontender to palpation. GI: Abdomen is soft, nontender and nondistended. Bowel sounds are positive. SKIN: No acute rash. NEUROLOGIC: Limited at the present time. IMPRESSION: 1. Acute bronchitis. 2. Asthma. 3. Recent flu. 4. Diabetes mellitus. PLAN: The patient appears very comfortable this morning. She is not short of breath at rest. She does state to feeling much, much better overall. On physical exam, her bronchospasm continues to slowly resolve. In addition, the oxygen saturation on room air is now 98%. I will continue the current nebulizer treatments and low-dose oral steroids for now. Clinical status of the patient is significantly improved. I will discuss the above with Dr. Franklin. Dat Anderson MD MTDD
[2017-08-03] MEDS: Home Med 1 UNIT PO SCH ×2 (09:54→09:55)
[2017-08-03 10:20] VITALS: BP 118/66; PULSE 68; RESP 16; TEMP 97.8; O2SAT 99
--- NOTE | 2017-08-03 12:34 | PN ---
DATE: Christopher Montes was seen on the floor. The plan is to do an outpatient workup for this abnormality on the gallbladder, probably including an MRI and possibly, repeat ultrasound. I would be happy to see and follow the patient in my office on discharge. Simon Burgess MD
--- NOTE | 2017-08-04 05:10 | DS ---
HISTORY: She is resting comfortably in her room. She is walking around the room without any shortness of breath, chest pain, or abdominal pain. She is doing much better. She is doing very well with therapy and she will be discharged today. PHYSICAL EXAMINATION: VITAL SIGNS: 97.2 temperature, 87 pulse, 140/75 blood pressure, 18 respiratory rate, 98% O2 saturation on room air. HEAD: Atraumatic and normocephalic. HEART: Regular rate. LUNGS: Clear to auscultation. No wheezes, no rhonchi, no rales. Much improvement. ABDOMEN: Soft, morbidly obese, nontender. EXTREMITIES: No edema. She is going to go home on Colace; Cozaar; DuoNebs; Ecotrin; Glucophage or home insulin; Januvia; metoprolol; metformin; vitamins; Norvasc; prednisone 30 for 3 days, 20 for 3 days, 10 for 3 days, then stop; Protonix; Pulmicort 2 puffs twice a day and levothyroxine. She has 161 blood sugar. Overall, she has improved greatly. She was here for asthma, stone in the gallbladder, to be followed up in the outpatient in a week. Teddy Franklin DO
== END 2017-08-03 12:35 | disposition home or self-care (01) | DRG 203 ==
LOC: TRCU 18:30
PROVIDERS: ADMIT Family Medicine; ATTEND Family Medicine
PROC: F07Z9ZZ Gait Training/Functional Ambulation Treatment (ICD-10-PCS; principal; 2017-07-29)
PROC: F07M6ZZ Therapeutic Exercise Treatment of Musculoskeletal System - Whole Body (ICD-10-PCS; 2017-07-30)
PROC: F08Z1ZZ Dressing Techniques Treatment (ICD-10-PCS; 2017-07-30)
PROC: F08Z2ZZ Grooming/Personal Hygiene Treatment (ICD-10-PCS; 2017-07-30)
PROC: F08Z0ZZ Bathing/Showering Techniques Treatment (ICD-10-PCS; 2017-07-30)
DX: J20.9 Acute bronchitis, unspecified (principal); E11.9 Type 2 diabetes mellitus without complications; I10 Essential (primary) hypertension; J11.1 Influenza due to unidentified influenza virus with other respiratory manifestations; J45.909 Unspecified asthma, uncomplicated; K59.00 Constipation, unspecified; I25.2 Old myocardial infarction

== ENCOUNTER 2018-01-09 06:31 | Day surgery (SDC) | payer MEDICARE, MEDICAID ==
[2018-01-05 08:46] VITALS: BMI 28.3
[2018-01-09 07:09] LABS: BASO # 0.01 K/mm3 (0.0-2.0); BASO % 0.2 % (0.0-3.0); EOS # 0.2 (0.0-0.7); GRAN # 2.71 (1.4-6.5); GRAN % 57.2 % (50.0-68.0); HEMOGLOBIN 12.2 g/dL (12.0-16.0); LYMPH # 1.6 (1.2-3.4); LYMPH % 32.7 % (22.0-35.0); MEAN CELL VOLUME 93.7 fl (80.0-105.0); MEAN CORPUSCULAR HEMOGLOBIN 30.7 pg (25.0-35.0); MEAN CORPUSCULAR HGB CONC 32.8 g/dl (31.0-37.0); MEAN PLATELET VOLUME 9.8 fl (7.0-11.0); MONO # 0.3 (0.1-0.6); MONO % 5.9 % (1.0-6.0); RBC 3.97 10^6/uL (3.5-6.1); RED CELL DISTRIBUTION WIDTH 13.3 % (11.5-14.5); WHITE BLOOD COUNT 4.7 10^3/ul (4.5-11.0)
[2018-01-09 07:16] LABS: BLOOD UREA NITROGEN 9 mg/dL (7-21); CALCIUM 9.3 mg/dL (8.4-10.5); GFR AFRICAN-AMERICAN > 60; GFR NON-AFRICAN AMERICAN 53; HDL CHOLESTEROL 59 mg/dL (29-60)
[2018-01-09 07:20] LABS: INR 0.97 (0.93-1.08); PROTHROMBIN TIME 11.2 SECONDS (9.4-12.5)
[2018-01-09 07:27] LABS: LDL CHOLESTEROL 108 mg/dL (0-129)
[2018-01-09 07:33] LABS: PARTIAL THROMBOPLASTIN TIME 21.1 Seconds (25.1-36.5)
[2018-01-09] MEDS ORDERED: Lidocaine 2 GM Vial 2 GM/50 ML VIAL IV ONE ×2 (07:45→08:56)
[2018-01-09] MEDS ORDERED: Midazolam 2 MG/2 ML VIAL ONE (08:04)
[2018-01-09] MEDS ORDERED: Iohexol 350mgl/ml 50 ML ONE (08:26)
[2018-01-09] MEDS ORDERED: Iohexol 350 MG/100 ML VIAL ONE (08:46)
[2018-01-09] MEDS ORDERED: Sodium Chloride 0.45% 1,000 ML IV SCH (09:45)
--- NOTE | 2018-01-09 09:57 | CP.PCM.CON ---
History of Present Illness - History of Present Illness History of Present Illness: 77 F with hc of HTN, DM, Hyperlipidemia, hypothyroidism and asthma abnormal stress test S/P cath LAD: proximal 80% RCA: Proximal 85% Normal EF S/P RCA GRISEL stent Stable ASA. Plavix and other meds OOB to ambulate after 12 noon Resume diet IV hydration Patient will be admitted for overnight observation under Dr. Kuhn's service D/C in am if stable F/U with dr. Venegas (cardiology in 1 week) Phone: [phone] Staged PCI of LAD in one month Past Patient History - Infectious Disease Hx of Infectious Diseases: None - Tetanus Immunizations Tetanus Immunization: Unknown - Past Social History Smoking Status: Never Smoked - CARDIAC Hx Pacemaker: No - PULMONARY Hx Respiratory Disorders: Yes (influenza 07-25-17) Hx Asthma: Yes - NEUROLOGICAL Hx Paralysis: No - HEENT Hx HEENT Problems: No - RENAL Hx Chronic Kidney Disease: No Hx Dialysis: No Hx Kidney Stones: No - ENDOCRINE/METABOLIC Hx Diabetes Mellitus Type 2: Yes - HEMATOLOGICAL/ONCOLOGICAL Hx Blood Transfusions: No - INTEGUMENTARY Hx Dermatological Problems: Yes Other/Comment: bilateral leg edema +2 more to right than left - MUSCULOSKELETAL/RHEUMATOLOGICAL Hx Musculoskeletal Disorders: No - GASTROINTESTINAL Hx Gastrointestinal Disorders: No - GENITOURINARY/GYNECOLOGICAL Hx Genitourinary Disorders: No Hx Reproductive Disorders: No - PSYCHIATRIC Hx Emotional Abuse: No Hx Physical Abuse: No Hx Substance Use: No - SURGICAL HISTORY Hx Surgeries: Yes - ANESTHESIA Hx Anesthesia Reactions: No Hx Malignant Hyperthermia: No Meds Allergies/Adverse Reactions: Allergies Allergy/AdvReac Type Severity Reaction Status Date / Time No Known Allergies Allergy Verified 07/27/17 16:47 - Medications Medications: Current Medications Aspirin (Ecotrin) 81 mg PO DAILY GAUDENCIO Clopidogrel Bisulfate (Plavix) 75 mg PO DAILY [facility] Sodium Chloride (Sodium Chloride 0.45%) 1,000 mls @ 50 mls/hr IV .Q20H GAUDENCIO Stop: 01/09/18 23:59 Results - Vital Signs Recent Vital Signs: Last Vital Signs Temp 98 F 01/09/18 06:40 Pulse 59 L 01/09/18 06:40 Resp 18 01/09/18 06:40 BP 184/84 H 01/09/18 06:40 Pulse Ox 100 01/09/18 06:40 - Labs Result Diagrams: 01/09/18 06:55 01/09/18 06:55 Labs: Laboratory Results - last 24 hr 01/09/18 01/09/18 01/09/18 06:55 06:55 06:55 WBC 4.7 D RBC 3.97 Hgb 12.2 Hct 37.2 MCV 93.7 MCH 30.7 MCHC 32.8 RDW 13.3 Plt Count 245 MPV 9.8 Gran % 57.2 Lymph % (Auto) 32.7 [place] % (Auto) 5.9 Eos % (Auto) 4.0 Baso % (Auto) 0.2 Gran # 2.71 Lymph # (Auto) 1.6 [place] # (Auto) 0.3 Eos # (Auto) 0.2 Baso # (Auto) 0.01 PT 11.2 INR 0.97 APTT 21.1 L Sodium 141 Potassium 3.9 Chloride 103 Carbon Dioxide 25 Anion Gap 16 BUN 9 Creatinine 1.0 Est GFR ( Amer) > 60 Est GFR (Non-Af Amer) 53 Random Glucose 193 H Calcium 9.3 Triglycerides 125 Cholesterol 205 H LDL Cholesterol Direct 108 HDL Cholesterol 59 Blood Type Blood Type Confirm Antibody Screen BBK History Checked 01/09/18 01/09/18 01/09/18 06:55 07:05 08:04 WBC RBC Hgb Hct MCV MCH MCHC RDW Plt Count MPV Gran % Lymph % (Auto) [place] % (Auto) Eos % (Auto) Baso % (Auto) Gran # Lymph # (Auto) [place] # (Auto) Eos # (Auto) Baso # (Auto) PT INR APTT Sodium Potassium Chloride Carbon Dioxide Anion Gap BUN Creatinine Est GFR ( Amer) Est GFR (Non-Af Amer) Random Glucose Calcium Triglycerides Cholesterol LDL Cholesterol Direct HDL Cholesterol Blood Type Cancelled O POSITIVE Blood Type Confirm O POSITIVE Antibody Screen Cancelled Negative BBK History Checked Cancelled No verified bt
[2018-01-09] MEDS ORDERED: Albuterol-Ipratrop 3 mg / 0.5 (3 ml) UD IH PRN (10:01)
[2018-01-09] MEDS ORDERED: Budesonide 0.5 mg/2 ml Inhal Susp UD IH PRN (10:01)
--- NOTE | 2018-01-09 11:16 | CARD ---
APPROVED REPORT Date of service: 01/09/2018 EKG Measurement Heart [id number] <Conclusion> Normal sinus rhythm Tall P 2,3,AVF Suggestive of Ch.Lung Disease. Non Specific ST_T Changes.
--- NOTE | 2018-01-09 13:59 | CARDCATH ---
PROCEDURE DATE: 01/09/2018 PROCEDURES: 1. Left heart catheterization. 2. Coronary angiogram. 3. Percutaneous intervention and drug-eluting stent placement of the right coronary artery. CLINICAL INDICATIONS: 1. Exertional angina. 2. Abnormal stress test. 3. Diabetes. 4. Hypertension. 5. Hyperlipidemia. 6. Hypothyroidism. REFERRING PHYSICIAN: Eda Venegas MD. PERFORMING PHYSICIAN: Elio Tsai MD. BRIEF CLINICAL HISTORY: Christopher Montes is a 77-year-old female with history of diabetes, hypertension, hyperlipidemia, hypothyroidism, asthma, brought to [facility] for cardiac cath due to exertional angina and abnormal stress test. PROCEDURE: After informed consent, the patient was prepped and draped in the usual sterile fashion. A 2% lidocaine was given in the right groin for local anesthesia. Using micropuncture technique, a 6-Croatian sheath was introduced into right common femoral artery. Using JL4 6-Croatian diagnostic catheter, left coronary angiogram was performed. Then, JR4 diagnostic catheter crossed in the left ventricle across the aortic valve. LV end-diastolic pressure measured. Contrast injected and LV angiogram was done. Then, the catheter was pulled back across the aortic valve. Gradient across the aortic valve was measured. Then, the catheter engaged into right coronary artery. Contrast was injected and left coronary angiogram was done. The patient tolerated the diagnostic angiogram well. Radiological supervision and interpretation of the cardiac catheterization was done. Findings of the diagnostic catheterization; 1. Left main coronary artery is patent. 2. LAD has proximal 80% stenosis. Mid and distal LAD is patent. Diagonal branches are patent. 3. Left circumflex coronary artery is patent. However, obtuse marginal 1 artery has 60% proximal stenosis. 4. Right coronary artery is dominant. Proximal right coronary artery has 85% stenosis. Mid right coronary artery has 30%-40% stenosis. PLV branch has 50%-60% stenosis. 5. LV ejection fraction is approximately 60%. No wall motion abnormality is noted. EDP is 22. No gradient across the aortic valve. 6. Due to coronary lesions, decided to intervene right coronary artery first as the patient had abnormal stress test in the . The patient was preloaded with aspirin, Plavix and IV heparin. ACT was maintained about 250. A 6-Croatian JR4 guide catheter engaged into right coronary artery. Initial angiogram has confirmed the findings. The right coronary artery threaded with Runthrough coronary wire. The proximal RCA lesion pre-dilated using 2.5 x 12 noncompliant balloon. Then, stented with 3.5 x 15 Resolute Ander drug-eluting stent. Excellent final angiographic results with brisk ELVI-3 flow noted. The patient tolerated the procedure well. Postprocedure, Perclose suture deployed in the right groin with good hemostasis. The patient will be transferred to telemetry for further observation. In the morning, if the patient is stable, we will discharge the patient with all the home medications and additional medication of clopidogrel will be added. The patient will be brought back for intervention of the left anterior descending coronary artery after two to four weeks. Elio Tsai MD
--- NOTE | 2018-01-09 18:32 | CP.PCM.HP ---
<David Stein - Last Filed: 01/09/18 18:20> History of Present Illness - History of Present Illness History of Present Illness: David Stein, PGY-1 History and Physical for Hospitalist Service CC: Post-catheterization Observation HPI: Ms. Montes is a 77 year old Female who presented s/p catheterization and placement of one drug eluting stent in RCA earlier today. She has a past medical history of hypertension, hypothyroid, asthma, DM, HLD, and CVA (1994). Patient states 3 weeks ago she felt weak and thought she was going to collapse while walking up stairs. She called her environmental aide Dr. Durán who ordered a stress test which was abnormal. Today the patient underwent a cardiac catherization with placement of one GRISEL in the RCA at [facility] with environmental aide Dr. Tsai. Patient reports she [place] [facility] [place] stress test. Currently the patient is complaining of a headache. She denies any current chest pain, dyspnea, palpitations, fevers, chills, nausea, vomiting, abdominal pain, or bruising. 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 Meds: Aspirin, Januvia, Metoprolol 25 BID, Ranolazine, Duonebs, Symbicort, synthroid 150 mcg, simvastatin 40, acetaminophen 650 Pharmacy: [facility] drugs PMD: Dr. Mariscal Cardio: Dr. Venegas Present on Admission - Present on Admission Any Indicators Present on Admission: No Review of Systems - Review of Systems All systems: reviewed and no additional remarkable complaints except (as explained in HPI) Past Patient History - Infectious Disease Hx of Infectious Diseases: None - Tetanus Immunizations Tetanus Immunization: Unknown - Past Social History Smoking Status: Never Smoked - CARDIAC Hx Pacemaker: No - PULMONARY Hx Respiratory Disorders: Yes (influenza 07-25-17) Hx Asthma: Yes - NEUROLOGICAL Hx Paralysis: No - HEENT Hx HEENT Problems: No - RENAL Hx Chronic Kidney Disease: No Hx Dialysis: No Hx Kidney Stones: No - ENDOCRINE/METABOLIC Hx Diabetes Mellitus Type 2: Yes - HEMATOLOGICAL/ONCOLOGICAL Hx Blood Transfusions: No - INTEGUMENTARY Hx Dermatological Problems: Yes Other/Comment: bilateral leg edema +2 more to right than left - MUSCULOSKELETAL/RHEUMATOLOGICAL Hx Musculoskeletal Disorders: No - GASTROINTESTINAL Hx Gastrointestinal Disorders: No - GENITOURINARY/GYNECOLOGICAL Hx Genitourinary Disorders: No Hx Reproductive Disorders: No - PSYCHIATRIC Hx Emotional Abuse: No Hx Physical Abuse: No Hx Substance Use: No - SURGICAL HISTORY Hx Surgeries: Yes - ANESTHESIA Hx Anesthesia Reactions: No Hx Malignant Hyperthermia: No Meds Allergies/Adverse Reactions: Allergies Allergy/AdvReac Type Severity Reaction Status Date / Time No Known Allergies Allergy Verified 07/27/17 16:47 Physical Exam - Constitutional Appears: Well, Non-toxic, No Acute Distress - Head Exam Head Exam: ATRAUMATIC, NORMAL INSPECTION, NORMOCEPHALIC - Eye Exam Eye Exam: EOMI, Normal appearance Pupil Exam: NORMAL ACCOMODATION, PERRL - ENT Exam ENT Exam: Mucous Membranes Moist, Normal Exam - Neck Exam Neck exam: Positive for: Normal Inspection - Respiratory Exam Respiratory Exam: Clear to Auscultation Bilateral, NORMAL BREATHING PATTERN - Cardiovascular Exam Cardiovascular Exam: REGULAR RHYTHM, +S1, +S2 - GI/Abdominal Exam GI & Abdominal Exam: Normal Bowel Sounds, Soft Additional comments: R hip catheter site is not tender, erythematous or fluctuant Results - Vital Signs Recent Vital Signs: Last Vital Signs Temp 98.0 F 01/09/18 16:42 Pulse 72 01/09/18 16:42 Resp 21 01/09/18 16:42 BP 159/98 H 01/09/18 16:42 Pulse Ox 100 01/09/18 06:40 - Labs Result Diagrams: 01/09/18 06:55 01/09/18 06:55 Labs: Laboratory Results - last 24 hr 01/09/18 01/09/18 01/09/18 06:55 06:55 06:55 WBC 4.7 D RBC 3.97 Hgb 12.2 Hct 37.2 MCV 93.7 MCH 30.7 MCHC 32.8 RDW 13.3 Plt Count 245 MPV 9.8 Gran % 57.2 Lymph % (Auto) 32.7 Clinton % (Auto) 5.9 Eos % (Auto) 4.0 Baso % (Auto) 0.2 Gran # 2.71 Lymph # (Auto) 1.6 Clinton # (Auto) 0.3 Eos # (Auto) 0.2 Baso # (Auto) 0.01 PT 11.2 INR 0.97 APTT 21.1 L Sodium 141 Potassium 3.9 Chloride 103 Carbon Dioxide 25 Anion Gap 16 BUN 9 Creatinine 1.0 Est GFR ( Amer) > 60 Est GFR (Non-Af Amer) 53 POC Glucose (mg/dL) Random Glucose 193 H Calcium 9.3 Triglycerides 125 Cholesterol 205 H LDL Cholesterol Direct 108 HDL Cholesterol 59 Blood Type Blood Type Confirm Antibody Screen BBK History Checked 01/09/18 01/09/18 01/09/18 06:55 07:05 08:04 WBC RBC Hgb Hct MCV MCH MCHC RDW Plt Count MPV Gran % Lymph % (Auto) [place] % (Auto) Eos % (Auto) Baso % (Auto) Gran # Lymph # (Auto) [place] # (Auto) Eos # (Auto) Baso # (Auto) PT INR APTT Sodium Potassium Chloride Carbon Dioxide Anion Gap BUN Creatinine Est GFR ( Amer) Est GFR (Non-Af Amer) POC Glucose (mg/dL) Random Glucose Calcium Triglycerides Cholesterol LDL Cholesterol Direct HDL Cholesterol Blood Type Cancelled O POSITIVE Blood Type Confirm O POSITIVE Antibody Screen Cancelled Negative BBK History Checked Cancelled No verified bt 01/09/18 01/09/18 11:12 16:22 WBC RBC Hgb Hct MCV MCH MCHC RDW Plt Count MPV Gran % Lymph % (Auto) [place] % (Auto) Eos % (Auto) Baso % (Auto) Gran # Lymph # (Auto) [place] # (Auto) Eos # (Auto) Baso # (Auto) PT INR APTT Sodium Potassium Chloride Carbon Dioxide Anion Gap BUN Creatinine Est GFR ( Amer) Est GFR (Non-Af Amer) POC Glucose (mg/dL) 246 H 172 H Random Glucose Calcium Triglycerides Cholesterol LDL Cholesterol Direct HDL Cholesterol Blood Type Blood Type Confirm Antibody Screen BBK History Checked Assessment & Plan - Assessment and Plan (Free Text) Assessment: Ms. Montes is a 77 year old Female with a PMHx of [place] 38 years ago, HTN, DM, Hypothyroidism, Asthma and CVA in 1994 who presented s/p GRISEL during a catheterization. Post-cath care: - monitor overnight on telemetry - patient on dual antiplatelet therapy with aspirin 81 and plavix 75 - IVF NS @50 - f/u AM labs Asthma: - duonebs in place Hypothroidism: - continue home synthroid of 150 mcg HLD: - patient continues home med Lipitor DM: - monitor on ISS Disposition: Per Dr. Tsai, patient should F/U with Dr. Venegas in 1 week Staged PCI of LAD planned in one month Patient seen, case reviewed, and plan agreed upon with Dr. Kuhn. David Steni, PGY-1 <Susan Kuhn - Last Filed: 01/10/18 07:37> Results - Vital Signs Recent Vital Signs: Last Vital Signs Temp 98.1 F 01/10/18 06:00 Pulse 66 01/10/18 06:00 Resp 17 01/10/18 06:00 BP 137/91 H 01/10/18 06:00 Pulse Ox 98 01/10/18 06:00 - Labs Result Diagrams: 01/10/18 06:00 01/10/18 06:00 Labs: Laboratory Results - last 24 hr 01/09/18 01/09/18 01/09/18 06:55 07:05 08:04 WBC RBC Hgb Hct MCV MCH MCHC RDW Plt Count MPV Gran % Lymph % (Auto) [place] % (Auto) Eos % (Auto) Baso % (Auto) Gran # Lymph # (Auto) [place] # (Auto) Eos # (Auto) Baso # (Auto) Sodium Potassium Chloride Carbon Dioxide Anion Gap BUN Creatinine Est GFR ( Amer) Est GFR (Non-Af Amer) POC Glucose (mg/dL) Random Glucose Calcium Blood Type Cancelled O POSITIVE Blood Type Confirm O POSITIVE Antibody Screen Cancelled Negative BBK History Checked Cancelled No verified bt 01/09/18 01/09/18 01/10/18 11:12 16:22 06:00 WBC RBC Hgb Hct MCV MCH MCHC RDW Plt Count MPV Gran % Lymph % (Auto) [place] % (Auto) Eos % (Auto) Baso % (Auto) Gran # Lymph # (Auto) [place] # (Auto) Eos # (Auto) Baso # (Auto) Sodium 141 Potassium 3.9 Chloride 104 Carbon Dioxide 26 Anion Gap 15 BUN 10 Creatinine 1.0 Est GFR ( Amer) > 60 Est GFR (Non-Af Amer) 53 POC Glucose (mg/dL) 246 H 172 H Random Glucose 148 H Calcium 9.0 Blood Type Blood Type Confirm Antibody Screen BBK History Checked 01/10/18 06:00 WBC 6.1 D RBC 3.76 Hgb 11.6 L Hct 35.0 L MCV 93.1 MCH 30.9 MCHC 33.1 RDW 13.7 Plt Count 217 MPV 9.6 Gran % 65.6 Lymph % (Auto) 26.8 Clinton % (Auto) 5.3 Eos % (Auto) 2.1 Baso % (Auto) 0.2 Gran # 4.00 Lymph # (Auto) 1.6 Clinton # (Auto) 0.3 Eos # (Auto) 0.1 Baso # (Auto) 0.01 Sodium Potassium Chloride Carbon Dioxide Anion Gap BUN Creatinine Est GFR ( Amer) Est GFR (Non-Af Amer) POC Glucose (mg/dL) Random Glucose Calcium Blood Type Blood Type Confirm Antibody Screen BBK History Checked Attending/Attestation - Attestation I have personally seen and examined this patient.: Yes I have fully participated in the care of the patient.: Yes I have reviewed all pertinent clinical information: Yes Notes (Text): 01/09/18 77 year old female with past medical history of hypertension, diabetes, CVA ( 1994) and hypothyroidism who is s/p cardiac cath with GRISEL of RCA. Case was discuss with Dr. Tsai; continue with aspirin, plavix, statin and metoprolol. Plan for staged PCI of LAD in one month. Continue with home medications. Continue with insulin ss for diabetes. Observe overnight and possible d/c tomorrow if stable. Susan Kuhn MD Hospitalist.
[2018-01-09] MEDS: Insulin Reg-LOW-Coverage SC SCH (22:41)
[2018-01-10 06:33] VITALS: PULSE 66; TEMP 98.1
[2018-01-10 06:41] LABS: BASO # 0.01 K/mm3 (0.0-2.0); BASO % 0.2 % (0.0-3.0); EOS # 0.1 (0.0-0.7); EOS % 2.1 % (1.5-5.0); GRAN % 65.6 % (50.0-68.0); HEMOGLOBIN 11.6 g/dL (12.0-16.0); LYMPH # 1.6 (1.2-3.4); LYMPH % 26.8 % (22.0-35.0); MEAN CELL VOLUME 93.1 fl (80.0-105.0); MEAN CORPUSCULAR HEMOGLOBIN 30.9 pg (25.0-35.0); MEAN CORPUSCULAR HGB CONC 33.1 g/dl (31.0-37.0); MEAN PLATELET VOLUME 9.6 fl (7.0-11.0); MONO # 0.3 (0.1-0.6); MONO % 5.3 % (1.0-6.0); RBC 3.76 10^6/uL (3.5-6.1); RED CELL DISTRIBUTION WIDTH 13.7 % (11.5-14.5)
[2018-01-10 06:59] LABS: BLOOD UREA NITROGEN 10 mg/dL (7-21); GFR AFRICAN-AMERICAN > 60; GFR NON-AFRICAN AMERICAN 53
[2018-01-10 07:13] LABS: WHITE BLOOD COUNT 6.1 10^3/ul (4.5-11.0)
[2018-01-10] MEDS: Insulin Reg-LOW-Coverage SC SCH ×2 (08:24→12:21)
[2018-01-10] MEDS ORDERED: Levothyroxine 150 MCG TAB PO SCH (10:00)
[2018-01-10 10:25] VITALS: BP 151/65; RESP 18; O2SAT 97
--- NOTE | 2018-01-10 12:10 | CARD ---
APPROVED REPORT Date of service: 01/10/2018 EKG Measurement Heart [id number] <Conclusion> Normal sinus rhythm Lt.Ant.Hwmi-Block.
--- NOTE | 2018-01-13 23:26 | CP.PCM.DIS ---
<David Stein - Last Filed: 01/13/18 23:23> Provider - Provider Attending physician: Susan Kuhn MD Primary care physician: Navneet Mariscal DO Consults: Cardiology - Dr. Tsai Time Spent in preparation of Discharge (in minutes): 45 Diagnosis - Discharge Diagnosis (1) H/O cardiac catheterization Status: Acute Hospital Course - Lab Results Lab Results: Most Recent Lab Values WBC 6.1 10^3/ul (4.5-11.0) D 01/10/18 06:00 RBC 3.76 10^6/uL (3.5-6.1) 01/10/18 06:00 Hgb 11.6 g/dL (12.0-16.0) L 01/10/18 06:00 Hct 35.0 % (36.0-48.0) L 01/10/18 06:00 MCV 93.1 fl (80.0-105.0) 01/10/18 06:00 MCH 30.9 pg (25.0-35.0) 01/10/18 06:00 MCHC 33.1 g/dl (31.0-37.0) 01/10/18 06:00 RDW 13.7 % (11.5-14.5) 01/10/18 06:00 Plt Count 217 10^3/uL (120.0-450.0) 01/10/18 06:00 MPV 9.6 fl (7.0-11.0) 01/10/18 06:00 Gran % 65.6 % (50.0-68.0) 01/10/18 06:00 Lymph % (Auto) 26.8 % (22.0-35.0) 01/10/18 06:00 [place] % (Auto) 5.3 % (1.0-6.0) 01/10/18 06:00 Eos % (Auto) 2.1 % (1.5-5.0) 01/10/18 06:00 Baso % (Auto) 0.2 % (0.0-3.0) 01/10/18 06:00 Gran # 4.00 (1.4-6.5) 01/10/18 06:00 Lymph # (Auto) 1.6 (1.2-3.4) 01/10/18 06:00 [place] # (Auto) 0.3 (0.1-0.6) 01/10/18 06:00 Eos # (Auto) 0.1 (0.0-0.7) 01/10/18 06:00 Baso # (Auto) 0.01 K/mm3 (0.0-2.0) 01/10/18 06:00 PT 11.2 SECONDS (9.4-12.5) 01/09/18 06:55 INR 0.97 (0.93-1.08) 01/09/18 06:55 APTT 21.1 Seconds (25.1-36.5) L 01/09/18 06:55 Sodium 141 mmol/L (132-148) 01/10/18 06:00 Potassium 3.9 mmol/L (3.6-5.0) 01/10/18 06:00 Chloride 104 mmol/L (98-107) 01/10/18 06:00 Carbon Dioxide 26 mmol/L (21-33) 01/10/18 06:00 Anion Gap 15 (10-20) 01/10/18 06:00 BUN 10 mg/dL (7-21) 01/10/18 06:00 Creatinine 1.0 mg/dl (0.7-1.2) 01/10/18 06:00 Est GFR ( Amer) > 60 01/10/18 06:00 Est GFR (Non-Af Amer) 53 01/10/18 06:00 POC Glucose (mg/dL) 235 mg/dL (65-110) H 01/10/18 11:22 Random Glucose 148 mg/dL (70-110) H 01/10/18 06:00 Calcium 9.0 mg/dL (8.4-10.5) 01/10/18 06:00 Triglycerides 125 mg/dL (35-160) 01/09/18 06:55 Cholesterol 205 mg/dL (130-200) H 01/09/18 06:55 LDL Cholesterol Direct 108 mg/dL (0-129) 01/09/18 06:55 HDL Cholesterol 59 mg/dL (29-60) 01/09/18 06:55 Blood Type O POSITIVE 01/09/18 08:04 Blood Type Confirm O POSITIVE 01/09/18 07:05 Antibody Screen Negative 01/09/18 08:04 BBK History Checked No verified bt 01/09/18 08:04 - Hospital Course Hospital Course: Patient is a 77 year old female with past medical history of HTN, DM2, HLD, hypothyroism and asthma who presented to [facility] [place] for catheterization and placement of drug eluting stent in RCA with Dr. Tsai. The patient was admitted for overnight observation under the supervision of Dr. Tsai and primary medical team. The patient was placed on telemetry for observation overnight with no acute events reported. Patient was evaluated and was without hematoma, ecchymosis or bleeding. Discharge planning was discussed with patient including appropriate outpatient follow up with cardiology and primary medical doctor as well as instructions for medications. Patient's concerns and questions were addressed. Discharge Exam - Head Exam Head Exam: ATRAUMATIC, NORMAL INSPECTION, NORMOCEPHALIC - Eye Exam Eye Exam: EOMI, Normal appearance Pupil Exam: NORMAL ACCOMODATION - ENT Exam ENT Exam: Mucous Membranes Moist - Respiratory Exam Respiratory Exam: NORMAL BREATHING PATTERN, UNREMARKABLE. absent: Rales, Respiratory Distress, Stridor - Cardiovascular Exam Cardiovascular Exam: RRR, +S1, +S2 - GI/Abdominal Exam GI & Abdominal Exam: Normal Bowel Sounds, Soft, Unremarkable. absent: Tenderness Discharge Plan - Discharge Medications Prescriptions: Clopidogrel [Plavix] 75 mg PO DAILY #30 tab - Follow Up Plan Condition: GOOD Disposition: HOME/ ROUTINE Instructions: Heart Healthy Diet, Diabetes Exchange Diet, Coronary Angioplasty (DC), Coronary Heart Disease in Women, Clopidogrel Additional Instructions: 1.please follow up with your PMD Dr. Mariscal within 3-5 days regarding this admission 2.Please follow up with your high school science teacher Dr. Venegas within one week. You will also follow up with Dr. Tsai for your PCI procedure. Contact information will be provided in your discharge papers. 3.You will resume all your home medications with the addition of a new medication called Plavix. 4.if any symptoms recur please go to your nearest emergency department. 5. Please follow the attached Post Cardiac Catheterization & Interventional Procedure Discharge Instructions. If bleeding occurs at right groin; apply pressure and procedure to the nearest emergency room. If chest pain occurs, go to the nearest emergency room. Diet: Heart Healthy and Diabetic Exchange Menu Patient states she is up to date with regards to the flu and the pneumococcal vaccines. Referrals: Navneet Mariscal, [Primary Care Provider] - <Susan Kuhn - Last Filed: 01/14/18 08:47> Provider - Provider Attending physician: Susan Kuhn MD Primary care physician: Navneet Mariscal [facility] Course - Lab Results Lab Results: Most Recent Lab Values WBC 6.1 10^3/ul (4.5-11.0) D 01/10/18 06:00 RBC 3.76 10^6/uL (3.5-6.1) 01/10/18 06:00 Hgb 11.6 g/dL (12.0-16.0) L 01/10/18 06:00 Hct 35.0 % (36.0-48.0) L 01/10/18 06:00 MCV 93.1 fl (80.0-105.0) 01/10/18 06:00 MCH 30.9 pg (25.0-35.0) 01/10/18 06:00 MCHC 33.1 g/dl (31.0-37.0) 01/10/18 06:00 RDW 13.7 % (11.5-14.5) 01/10/18 06:00 Plt Count 217 10^3/uL (120.0-450.0) 01/10/18 06:00 MPV 9.6 fl (7.0-11.0) 01/10/18 06:00 Gran % 65.6 % (50.0-68.0) 01/10/18 06:00 Lymph % (Auto) 26.8 % (22.0-35.0) 01/10/18 06:00 [place] % (Auto) 5.3 % (1.0-6.0) 01/10/18 06:00 Eos % (Auto) 2.1 % (1.5-5.0) 01/10/18 06:00 Baso % (Auto) 0.2 % (0.0-3.0) 01/10/18 06:00 Gran # 4.00 (1.4-6.5) 01/10/18 06:00 Lymph # (Auto) 1.6 (1.2-3.4) 01/10/18 06:00 [place] # (Auto) 0.3 (0.1-0.6) 01/10/18 06:00 Eos # (Auto) 0.1 (0.0-0.7) 01/10/18 06:00 Baso # (Auto) 0.01 K/mm3 (0.0-2.0) 01/10/18 06:00 PT 11.2 SECONDS (9.4-12.5) 01/09/18 06:55 INR 0.97 (0.93-1.08) 01/09/18 06:55 APTT 21.1 Seconds (25.1-36.5) L 01/09/18 06:55 Sodium 141 mmol/L (132-148) 01/10/18 06:00 Potassium 3.9 mmol/L (3.6-5.0) 01/10/18 06:00 Chloride 104 mmol/L (98-107) 01/10/18 06:00 Carbon Dioxide 26 mmol/L (21-33) 01/10/18 06:00 Anion Gap 15 (10-20) 01/10/18 06:00 BUN 10 mg/dL (7-21) 01/10/18 06:00 Creatinine 1.0 mg/dl (0.7-1.2) 01/10/18 06:00 Est GFR ( Amer) > 60 01/10/18 06:00 Est GFR (Non-Af Amer) 53 01/10/18 06:00 POC Glucose (mg/dL) 235 mg/dL (65-110) H 01/10/18 11:22 Random Glucose 148 mg/dL (70-110) H 01/10/18 06:00 Calcium 9.0 mg/dL (8.4-10.5) 01/10/18 06:00 Triglycerides 125 mg/dL (35-160) 01/09/18 06:55 Cholesterol 205 mg/dL (130-200) H 01/09/18 06:55 LDL Cholesterol Direct 108 mg/dL (0-129) 01/09/18 06:55 HDL Cholesterol 59 mg/dL (29-60) 01/09/18 06:55 Blood Type O POSITIVE 01/09/18 08:04 Blood Type Confirm O POSITIVE 01/09/18 07:05 Antibody Screen Negative 01/09/18 08:04 BBK History Checked No verified bt 01/09/18 08:04 Attending/Attestation - Attestation I have personally seen and examined this patient.: Yes I have fully participated in the care of the patient.: Yes I have reviewed all pertinent clinical information, including history, physical exam and plan: Yes Notes (Text): 01/14/18 08:43 77 year old female with past medical history of hypertension, diabetes, dyslipidemia and hypothyroidism who presented for cardiac cath. She had RCA GRISEL placement. She was admitted for observation. She denied any chest pain or shortness of breath. She was discharged home the following day to follow up with cardiology. She is on aspirin and plavix in addition to her home medications. Susan Kuhn MD Hospitalist.
== END 2018-01-10 14:30 | disposition home or self-care (01) ==
LOC: CATH 06:31 → 2RSO 09:47 → CATH 01-10 14:30
PROVIDERS: ATTEND Internal Medicine
DX: I25.118 Atherosclerotic heart disease of native coronary artery with other forms of angina pectoris (principal); E03.9 Hypothyroidism, unspecified; E11.9 Type 2 diabetes mellitus without complications; E78.5 Hyperlipidemia, unspecified; I10 Essential (primary) hypertension; R94.39 Abnormal result of other cardiovascular function study; I25.2 Old myocardial infarction; J45.909 Unspecified asthma, uncomplicated; Z79.02 Long term (current) use of antithrombotics/antiplatelets; Z79.82 Long term (current) use of aspirin; Z86.73 Personal history of transient ischemic attack (TIA), and cerebral infarction without residual deficits
CPT/HCPCS: 36415 ×2; 80048 ×2; 80061; 82948 ×2; 85025 ×2; 85175; 85610; 85730; 86850; 86900; 93005; 93458; 99152; 99153; C1725; C1760; C1769 ×2; C1874; C1887; C1894; C9600; J0360; J1644 ×2; J2250; J2405; J3010; J7030; J7040; Q9967 ×3

== ENCOUNTER 2018-02-13 12:40 | Observation (INO) | payer MEDICARE, MEDICAID ==
[2018-01-05 08:46] VITALS: BMI 28.3
[2018-02-13 13:15] LABS: BASO # 0.01 K/mm3 (0.0-2.0); BASO % 0.2 % (0.0-3.0); EOS # 0.1 (0.0-0.7); EOS % 2.7 % (1.5-5.0); GRAN # 2.86 (1.4-6.5); GRAN % 59.6 % (50.0-68.0); HEMOGLOBIN 11.6 g/dL (12.0-16.0); LYMPH # 1.5 (1.2-3.4); MEAN CELL VOLUME 93.9 fl (80.0-105.0); MEAN PLATELET VOLUME 9.3 fl (7.0-11.0); MONO # 0.3 (0.1-0.6); MONO % 6.5 % (1.0-6.0); RBC 3.63 10^6/uL (3.5-6.1); RED CELL DISTRIBUTION WIDTH 12.9 % (11.5-14.5); WHITE BLOOD COUNT 4.8 10^3/ul (4.5-11.0)
[2018-02-13 13:24] LABS: CALCIUM 9.8 mg/dL (8.4-10.5)
[2018-02-13 13:27] LABS: INR 1.08; PARTIAL THROMBOPLASTIN TIME 27.7 Seconds (25.1-36.5); PROTHROMBIN TIME 12.3 SECONDS (9.4-12.5)
[2018-02-13] MEDS ORDERED: Iodixanol 320 MG/ML 200 ML BOTTLE IV ONE (14:14)
[2018-02-13] MEDS ORDERED: Iohexol 350mgl/ml 50 ML ONE (14:14)
[2018-02-13] MEDS ORDERED: Lidocaine PF 2% (5 ml) Inj (For Cardiac Arrhy) ONE (14:15)
[2018-02-13] MEDS ORDERED: Midazolam 2 MG/2 ML VIAL ONE (14:39)
[2018-02-13] MEDS ORDERED: Phenylephrine 10 mg/ml Inj ONE (14:47)
[2018-02-13] MEDS ORDERED: Nitroglycerin 50mg in D5W 50 MG/250 ML BOTTLE IV ONE (14:47)
--- NOTE | 2018-02-13 15:51 | CP.PCM.PN ---
Subjective - Date & Time of Evaluation Date of Evaluation: 02/13/18 Time of Evaluation: 15:48 - Subjective Subjective: 77 F with hx of CAD s/p RCA stent here for LAD intervention S/P Successful LAD intervention with GRISEL 2.5 x 34 Resolute Ander GRISEL (90% to 0% stenosis) Hx of DM, HTN, High amadou, Asthma and hypothyroidism Normal EF by ECHO Overnight observation F/U by discharge in am F/U Dr. Venegas and Dr. suero in 1-2 weeks Thank you Objective - Vital Signs/Intake and Output Vital Signs (last 24 hours): Temp Pulse Resp BP Pulse Ox 98.6 F 67 20 176/79 H 95 02/13/18 12:50 02/13/18 12:50 02/13/18 12:50 02/13/18 12:50 02/13/18 12:50 - Medications Medications: Current Medications Acetaminophen (Tylenol 325mg Tab) 650 mg PO Q4H PRN PRN Reason: Pain, Mild (1-3) Aspirin (Ecotrin) 81 mg PO DAILY GAUDENCIO Atorvastatin Calcium (Lipitor) 40 mg PO DIN GAUDENCIO Clopidogrel Bisulfate (Plavix) 75 mg PO DAILY GAUDENCIO Docusate Sodium (Colace) 100 mg PO BID GAUDENCIO Sodium Chloride (Sodium Chloride 0.45%) 1,000 mls @ 60 mls/hr IV .[id number] GAUDENCIO Losartan Potassium (Cozaar) 50 mg PO DAILY GAUDENCIO Metoprolol Tartrate (Lopressor) 25 mg PO BID GAUDENCIO Sitagliptin Phosphate (Januvia) 50 mg PO DAILY GAUDENCIO - Labs Labs: 02/13/18 13:00 02/13/18 13:00 PT 12.3 SECONDS (9.4-12.5) 02/13/18 13:00 INR 1.08 02/13/18 13:00 APTT 27.7 Seconds (25.1-36.5) 02/13/18 13:00
[2018-02-13] MEDS: Sodium Chloride 0.45% 1,000 ML IV SCH (16:00)
--- NOTE | 2018-02-13 16:35 | CP.PCM.HP ---
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 Patient underwent catheterization today on with successful placement of one drug eluting stent in the LAD. Patient seen and examined at bedside. Patient is feeling well after the procedure. She denied chest pain, shortness of breath, palpitation. She also denied any complaints of eg weakness or numbness at the right leg. 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 Meds: please see [facility] Pharmacy: [facility] PMD: Dr. Mariscal Cardio: Dr. Venegas Physical Examination: - Constitutional Appears: Well, Non-toxic, No Acute Distress - Head Exam Head Exam: ATRAUMATIC, NORMAL INSPECTION, NORMOCEPHALIC - Eye Exam Eye Exam: EOMI, Normal appearance - ENT Exam ENT Exam: Mucous Membranes Moist, Normal Exam - Neck Exam Neck exam: Positive for: Normal Inspection - Respiratory Exam Respiratory Exam: Clear to Auscultation Bilateral, NORMAL BREATHING PATTERN - Cardiovascular Exam Cardiovascular Exam: REGULAR RHYTHM, +S1, +S2 - GI/Abdominal Exam GI & Abdominal Exam: Normal Bowel Sounds, Soft Additional comments: R hip catheter site is not tender, erythematous or fluctuant - Neuro Exam Neuro Exam: patient is awake, alert, orientated x 3, responds to verbal stimuli , answers questions appropriately, follows commands, and moves extremities past midline - Extremities Exam Extremities Exam: - Skin Exam Skin Exam: Assessment and Plan: Patient is a 77 year old Female with a past medical history of CAD s/p one drug eluting stent in RCA, DM, HTN, Hypothyroid, Asthma, 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 CAD, Post-Cardiac Catherization: - monitor overnight on telemetry - continue with dual antiplatelet therapy with aspirin 81 and plavix 75 - continue statin, losartan, lopressor - continue IVF half NS @ 60 - f/u AM labs - assess catherization site- monitor for signs of infection and developing hematoma - monitor distal pulses as instructed - as per Dr. Tsai follow up by discharge in am - follow up with Dr. Venegas and Dr. tsai in 1-2 weeks Hx of Asthma: - continue supplemental oxygen via NC 2L, goal SaO2 > 90% - currently breathing without overt difficulty- prn duonebs for SOB Hx of Hypothroidism: - continue home synthroid of 150 mcg Hx of HLD: - continues statin Hx of DM: - fingersticks ACHS - c/w Paco Patient seen, case reviewed with, and plan approved by attending physician, Dr. Villagomez. Present on Admission - Present on Admission Any Indicators Present on Admission: No Past Patient History - Infectious Disease Hx of Infectious Diseases: None - Tetanus Immunizations Tetanus Immunization: Unknown - Past Social History Smoking Status: Never Smoked - CARDIAC Hx Pacemaker: No - PULMONARY Hx Respiratory Disorders: Yes (influenza 07-25-17) Hx Asthma: Yes - NEUROLOGICAL Hx Paralysis: No - HEENT Hx HEENT Problems: No - RENAL Hx Chronic Kidney Disease: No Hx Dialysis: No Hx Kidney Stones: No - ENDOCRINE/METABOLIC Hx Diabetes Mellitus Type 2: Yes - HEMATOLOGICAL/ONCOLOGICAL Hx Blood Transfusions: No - INTEGUMENTARY Hx Dermatological Problems: Yes Other/Comment: bilateral leg edema +2 more to right than left - MUSCULOSKELETAL/RHEUMATOLOGICAL Hx Musculoskeletal Disorders: No - GASTROINTESTINAL Hx Gastrointestinal Disorders: No - GENITOURINARY/GYNECOLOGICAL Hx Genitourinary Disorders: No Hx Reproductive Disorders: No - PSYCHIATRIC Hx Emotional Abuse: No Hx Physical Abuse: No Hx Substance Use: No - SURGICAL HISTORY Hx Surgeries: Yes - ANESTHESIA Hx Anesthesia Reactions: No Hx Malignant Hyperthermia: No Meds Allergies/Adverse Reactions: Allergies Allergy/AdvReac Type Severity Reaction Status Date / Time No Known Allergies Allergy Verified 07/27/17 16:47 Physical Exam - Constitutional Appears: Well, No Acute Distress - Head Exam Head Exam: ATRAUMATIC, NORMAL INSPECTION, NORMOCEPHALIC - Eye Exam Eye Exam: EOMI, Normal appearance, PERRL Pupil Exam: NORMAL ACCOMODATION, PERRL - ENT Exam ENT Exam: Mucous Membranes Moist, Normal Exam - Neck Exam Neck exam: Positive for: Normal Inspection - Respiratory Exam Respiratory Exam: Clear to Auscultation Bilateral, NORMAL BREATHING PATTERN - Cardiovascular Exam Cardiovascular Exam: REGULAR RHYTHM, +S1, +S2 - GI/Abdominal Exam GI & Abdominal Exam: Normal Bowel Sounds, Soft. absent: Tenderness - Rectal Exam Rectal Exam: NORMAL INSPECTION - Extremities Exam Additional comments: right groin wound. dressing applied. no hematoma, no tempreture changes, no swelling distal pulses palpated b/l - Back Exam Back exam: NORMAL INSPECTION - Neurological Exam Neurological exam: Alert, CN II-XII Intact, Oriented x3, Reflexes Normal - Psychiatric Exam Psychiatric exam: Normal Affect, Normal Mood - Skin Skin Exam: Dry, Intact, Normal Color, Warm Results - Vital Signs Recent Vital Signs: Last Vital Signs Temp 98.6 F 02/13/18 12:50 Pulse 79 02/13/18 16:15 Resp 13 02/13/18 16:15 BP 113/46 L 02/13/18 16:15 Pulse Ox 95 02/13/18 12:50 - Labs Result Diagrams: 02/14/18 05:40 02/14/18 05:40 Labs: Laboratory Results - last 24 hr 02/13/18 02/13/18 02/13/18 13:00 13:00 13:00 WBC 4.8 D RBC 3.63 Hgb 11.6 L Hct 34.1 L MCV 93.9 MCH 32.0 MCHC 34.0 RDW 12.9 Plt Count 262 MPV 9.3 Gran % 59.6 Lymph % (Auto) 31.0 Ro[place] % (Auto) 6.5 H Eos % (Auto) 2.7 Baso % (Auto) 0.2 Gran # 2.86 Lymph # (Auto) 1.5 [place] # (Auto) 0.3 Eos # (Auto) 0.1 Baso # (Auto) 0.01 PT INR APTT Sodium 143 Potassium 4.1 Chloride 105 Carbon Dioxide 29 Anion Gap 14 BUN 15 Creatinine 1.1 Est GFR ( Amer) 58 Est GFR (Non-Af Amer) 48 Random Glucose 170 H Calcium 9.8 Triglycerides 131 Cholesterol 214 H LDL Cholesterol Direct 116 HDL Cholesterol 48 Blood Type O POSITIVE Antibody Screen Negative BBK History Checked Patient has bt 02/13/18 13:00 WBC RBC Hgb Hct MCV MCH MCHC RDW Plt Count MPV Gran % Lymph % (Auto) Roane % (Auto) Eos % (Auto) Baso % (Auto) Gran # Lymph # (Auto) Ro[place] # (Auto) Eos # (Auto) Baso # (Auto) PT 12.3 INR 1.08 APTT 27.7 Sodium Potassium Chloride Carbon Dioxide Anion Gap BUN Creatinine Est GFR ( Amer) Est GFR (Non-Af Amer) Random Glucose Calcium Triglycerides Cholesterol LDL Cholesterol Direct HDL Cholesterol Blood Type Antibody Screen BBK History Checked Assessment & Plan - Date & Time Date: 02/13/18 Time: 17:05 <Keith Villagomez - Last Filed: 02/14/18 18:23> Results - Vital Signs Recent Vital Signs: Last Vital Signs Temp 98.8 F 02/14/18 05:52 Pulse 68 02/14/18 10:00 Resp 20 02/14/18 05:52 BP 141/62 02/14/18 09:35 Pulse Ox 98 02/14/18 05:52 - Labs Result Diagrams: 02/14/18 05:40 02/14/18 05:40 Labs: Laboratory Results - last 24 hr 02/13/18 02/14/18 02/14/18 21:33 05:40 05:40 WBC RBC Hgb Hct MCV MCH MCHC RDW Plt Count MPV Gran % Lymph % (Auto) Ro[place] % (Auto) Eos % (Auto) Baso % (Auto) Gran # Lymph # (Auto) Ro[place] # (Auto) Eos # (Auto) Baso # (Auto) Sodium 139 Potassium 3.8 Chloride 107 Carbon Dioxide 22 Anion Gap 14 BUN 17 Creatinine 1.1 Est GFR ( Amer) 58 Est GFR (Non-Af Amer) 48 POC Glucose (mg/dL) 174 H Random Glucose 142 H Calcium 9.1 TSH 3rd Generation 0.04 L 02/14/18 02/14/18 05:40 07:14 WBC 4.2 L RBC 3.33 L Hgb 10.5 L Hct 31.1 L MCV 93.4 MCH 31.5 MCHC 33.8 RDW 13.2 Plt Count 200 MPV 8.6 Gran % 57.7 Lymph % (Auto) 32.3 Ro[place] % (Auto) 6.9 H Eos % (Auto) 3.1 Baso % (Auto) 0.0 Gran # 2.41 Lymph # (Auto) 1.4 Roane # (Auto) 0.3 Eos # (Auto) 0.1 Baso # (Auto) 0.00 Sodium Potassium Chloride Carbon Dioxide Anion Gap BUN Creatinine Est GFR ( Amer) Est GFR (Non-Af Amer) POC Glucose (mg/dL) 121 H Random Glucose Calcium TSH 3rd Generation Attending/Attestation - Attestation I have personally seen and examined this patient.: Yes I have fully participated in the care of the patient.: Yes I have reviewed all pertinent clinical information: Yes Notes (Text): 02/14/18 17:40 attending note; Patient seen and examined with resident. Patient is a 77 year old Female with a past medical history of CAD s/p one drug eluting stent in RCA, DM, HTN, Hypothyroid, Asthma, CVA 1995 with chronic left sided weakness in her arm and leg who was admitted for cardiac catherization. Patient underwent catheterization today on with successful placement of one drug eluting stent in the LAD. patient seen and examined post cardiac cath. Patient is alert and awake. Right groin is soft. No hematoma noted. Peripheral pulses intact. Continue to monitor overnight. Case discussed with players assistant Dr. Tsai in detail. Patient will be discharged home tomorrow if stable. Patient will follow-up with players assistant in 1 week.
[2018-02-13] MEDS ORDERED: Albuterol-Ipratrop 3 mg / 0.5 (3 ml) UD IH PRN (17:04)
--- NOTE | 2018-02-13 20:53 | CARD ---
APPROVED REPORT Date of service: 02/13/2018 EKG Measurement Heart [id number] <Conclusion> Normal sinus rhythm Minimal voltage criteria for LVH, may be normal variant Borderline ECG
--- NOTE | 2018-02-13 20:55 | CARD ---
APPROVED REPORT Date of service: 02/13/2018 EKG Measurement Heart [id number] <Conclusion> Normal sinus rhythm Minimal voltage criteria for LVH, may be normal variant Borderline ECG
[2018-02-13] MEDS: Insulin Lispro (humaLOG) MEDIUM Coverage SC SCH (22:00)
[2018-02-13] MEDS ORDERED: Insulin Lispro (humaLOG) MEDIUM Coverage SC SCH (22:00)
[2018-02-13 23:31] VITALS: RESP 20
[2018-02-14 05:52] VITALS: TEMP 98.8; O2SAT 98
[2018-02-14 05:54] LABS: EOS # 0.1 (0.0-0.7); EOS % 3.1 % (1.5-5.0); GRAN # 2.41 (1.4-6.5); GRAN % 57.7 % (50.0-68.0); HEMOGLOBIN 10.5 g/dL (12.0-16.0); LYMPH # 1.4 (1.2-3.4); LYMPH % 32.3 % (22.0-35.0); MEAN CELL VOLUME 93.4 fl (80.0-105.0); MEAN CORPUSCULAR HEMOGLOBIN 31.5 pg (25.0-35.0); MEAN CORPUSCULAR HGB CONC 33.8 g/dl (31.0-37.0); MEAN PLATELET VOLUME 8.6 fl (7.0-11.0); MONO # 0.3 (0.1-0.6); MONO % 6.9 % (1.0-6.0); RBC 3.33 10^6/uL (3.5-6.1); RED CELL DISTRIBUTION WIDTH 13.2 % (11.5-14.5); WHITE BLOOD COUNT 4.2 10^3/ul (4.5-11.0)
[2018-02-14] MEDS ORDERED: Levothyroxine 150 MCG TAB PO SCH (06:00)
[2018-02-14 06:49] LABS: CALCIUM 9.1 mg/dL (8.4-10.5)
[2018-02-14] MEDS: Insulin Lispro (humaLOG) MEDIUM Coverage SC SCH ×2 (08:06→11:56)
[2018-02-14] MEDS: Sodium Chloride 0.45% 1,000 ML IV SCH (09:34)
[2018-02-14 09:39] VITALS: BP 141/62
[2018-02-14 10:29] VITALS: PULSE 68
--- NOTE | 2018-02-14 12:00 | CP.PCM.DIS ---
<Pipo Bourgeois - Last Filed: 02/14/18 16:07> Provider - Provider Date of Admission: 02/13/18 15:35 Attending physician: Keith Villagomez MD Primary care physician: Navneet Mariscal DO Consults: Cardiology Time Spent in preparation of Discharge (in minutes): 45 Hospital Course - Lab Results Lab Results: Most Recent Lab Values WBC 4.2 10^3/ul (4.5-11.0) L 02/14/18 05:40 RBC 3.33 10^6/uL (3.5-6.1) L 02/14/18 05:40 Hgb 10.5 g/dL (12.0-16.0) L 02/14/18 05:40 Hct 31.1 % (36.0-48.0) L 02/14/18 05:40 MCV 93.4 fl (80.0-105.0) 02/14/18 05:40 MCH 31.5 pg (25.0-35.0) 02/14/18 05:40 MCHC 33.8 g/dl (31.0-37.0) 02/14/18 05:40 RDW 13.2 % (11.5-14.5) 02/14/18 05:40 Plt Count 200 10^3/uL (120.0-450.0) 02/14/18 05:40 MPV 8.6 fl (7.0-11.0) 02/14/18 05:40 Gran % 57.7 % (50.0-68.0) 02/14/18 05:40 Lymph % (Auto) 32.3 % (22.0-35.0) 02/14/18 05:40 Cross % (Auto) 6.9 % (1.0-6.0) H 02/14/18 05:40 Eos % (Auto) 3.1 % (1.5-5.0) 02/14/18 05:40 Baso % (Auto) 0.0 % (0.0-3.0) 02/14/18 05:40 Gran # 2.41 (1.4-6.5) 02/14/18 05:40 Lymph # (Auto) 1.4 (1.2-3.4) 02/14/18 05:40 Cross # (Auto) 0.3 (0.1-0.6) 02/14/18 05:40 Eos # (Auto) 0.1 (0.0-0.7) 02/14/18 05:40 Baso # (Auto) 0.00 K/mm3 (0.0-2.0) 02/14/18 05:40 PT 12.3 SECONDS (9.4-12.5) 02/13/18 13:00 INR 1.08 02/13/18 13:00 APTT 27.7 Seconds (25.1-36.5) 02/13/18 13:00 Sodium 139 mmol/L (132-148) 02/14/18 05:40 Potassium 3.8 mmol/L (3.6-5.0) 02/14/18 05:40 Chloride 107 mmol/L (98-107) 02/14/18 05:40 Carbon Dioxide 22 mmol/L (21-33) 02/14/18 05:40 Anion Gap 14 (10-20) 02/14/18 05:40 BUN 17 mg/dL (7-21) 02/14/18 05:40 Creatinine 1.1 mg/dl (0.7-1.2) 02/14/18 05:40 Est GFR ( Amer) 58 02/14/18 05:40 Est GFR (Non-Af Amer) 48 02/14/18 05:40 POC Glucose (mg/dL) 121 mg/dL (65-110) H 02/14/18 07:14 Random Glucose 142 mg/dL (70-110) H 02/14/18 05:40 Calcium 9.1 mg/dL (8.4-10.5) 02/14/18 05:40 Triglycerides 131 mg/dL (35-160) 02/13/18 13:00 Cholesterol 214 mg/dL (130-200) H 02/13/18 13:00 LDL Cholesterol Direct 116 mg/dL (0-129) 02/13/18 13:00 HDL Cholesterol 48 mg/dL (29-60) 02/13/18 13:00 TSH 3rd Generation 0.04 mIU/mL (0.46-4.68) L 02/14/18 05:40 Blood Type O POSITIVE 02/13/18 13:00 Antibody Screen Negative 02/13/18 13:00 BBK History Checked Patient has bt 02/13/18 13:00 - Hospital Course Hospital Course: Hospital course: Patient is a 77 year old Female with a past medical history of CAD s/p one drug eluting stent in RCA, DM, HTN, Hypothyroid, Asthma, CVA 1995 with chronic left sided weakness in her arm and leg who was admitted for cardiac catherization observation. Patient underwent catheterization on with successful placement of one drug eluting stent in the LAD. Patient is feeling well after the procedure, had no complaints overnight. Patient denied ant hematoma, color changes, temptreture changes at the incision site. Patient is medically optimized for discharge today. On discharge: Please resume taking your home medication as priscribed by your doctor Please follow up with your primary care doctor within 3-5 days after discharge Please avoid heavy lifting, straining for the next one week till your groin wound heals. Please watch for local swelling, tenderness, color discoloration at your incision site. Please follow healthy diet and exercise regimen as tolerated to avoid complications of heart disease or stroke in the future Return to the nearest emergency room for if symptoms stated above occur - Date & Time of H&P Date of H&P: 02/14/18 Time of H&P: 10:00 Discharge Exam - Head Exam Head Exam: ATRAUMATIC, NORMAL INSPECTION, NORMOCEPHALIC - Eye Exam Eye Exam: EOMI, Normal appearance, PERRL Pupil Exam: NORMAL ACCOMODATION, PERRL - Respiratory Exam Respiratory Exam: Clear to PA & Lateral, NORMAL BREATHING PATTERN - Cardiovascular Exam Cardiovascular Exam: REGULAR RHYTHM, +S1, +S2 - GI/Abdominal Exam GI & Abdominal Exam: Normal Bowel Sounds - Rectal Exam Rectal Exam: Deferred - Extremities Exam Additional comments: right groin wound healed. dressing removed. no sighns of infection or hematoma. - Back Exam Back exam: FULL ROM, NORMAL INSPECTION - Neurological Exam Neurological exam: Alert, CN II-XII Intact, Normal Gait, Oriented x3, Reflexes Normal - Psychiatric Exam Psychiatric exam: Normal Affect, Normal Mood - Skin Skin Exam: Dry, Intact, Normal Color, Warm Discharge Plan - Follow Up Plan Condition: GOOD Disposition: HOME/ ROUTINE Instructions: Heart Healthy Diet, Preventing Falls in the Older Adult, Coronary Angioplasty (DC), Coronary Stenting (DC), Chest Pain (DC) Additional Instructions: Please resume taking your home medication as priscribed by your doctor. Please follow up with your primary care doctor (Dr. Mariscal) within 3-5 days after discharge. Please follow up with your Delivery Man (Dr. Tsai) as previously scheduled. Please avoid heavy lifting or straining for the next one week till your groin wound heals. Please watch for local swelling, tenderness, discoloration at your incision site. Please follow a healthy diet and exercise regimen, as tolerated, to avoid complications of heart disease or stroke in the future. Return to the nearest emergency department if you experience worsening or newly concerning symptoms. Referrals: Navneet Mariscal DO [Primary Care Provider] - <Keith Villagomez - Last Filed: 02/14/18 18:25> Provider - Provider Date of Admission: 02/13/18 15:35 Attending physician: Keith Villagomez MD Primary care physician: Navneet Mariscal DO Hospital Course - Lab Results Lab Results: Most Recent Lab Values WBC 4.2 10^3/ul (4.5-11.0) L 02/14/18 05:40 RBC 3.33 10^6/uL (3.5-6.1) L 02/14/18 05:40 Hgb 10.5 g/dL (12.0-16.0) L 02/14/18 05:40 Hct 31.1 % (36.0-48.0) L 02/14/18 05:40 MCV 93.4 fl (80.0-105.0) 02/14/18 05:40 MCH 31.5 pg (25.0-35.0) 02/14/18 05:40 MCHC 33.8 g/dl (31.0-37.0) 02/14/18 05:40 RDW 13.2 % (11.5-14.5) 02/14/18 05:40 Plt Count 200 10^3/uL (120.0-450.0) 02/14/18 05:40 MPV 8.6 fl (7.0-11.0) 02/14/18 05:40 Gran % 57.7 % (50.0-68.0) 02/14/18 05:40 Lymph % (Auto) 32.3 % (22.0-35.0) 02/14/18 05:40 Cross % (Auto) 6.9 % (1.0-6.0) H 02/14/18 05:40 Eos % (Auto) 3.1 % (1.5-5.0) 02/14/18 05:40 Baso % (Auto) 0.0 % (0.0-3.0) 02/14/18 05:40 Gran # 2.41 (1.4-6.5) 02/14/18 05:40 Lymph # (Auto) 1.4 (1.2-3.4) 02/14/18 05:40 Cross # (Auto) 0.3 (0.1-0.6) 02/14/18 05:40 Eos # (Auto) 0.1 (0.0-0.7) 02/14/18 05:40 Baso # (Auto) 0.00 K/mm3 (0.0-2.0) 02/14/18 05:40 PT 12.3 SECONDS (9.4-12.5) 02/13/18 13:00 INR 1.08 02/13/18 13:00 APTT 27.7 Seconds (25.1-36.5) 02/13/18 13:00 Sodium 139 mmol/L (132-148) 02/14/18 05:40 Potassium 3.8 mmol/L (3.6-5.0) 02/14/18 05:40 Chloride 107 mmol/L (98-107) 02/14/18 05:40 Carbon Dioxide 22 mmol/L (21-33) 02/14/18 05:40 Anion Gap 14 (10-20) 02/14/18 05:40 BUN 17 mg/dL (7-21) 02/14/18 05:40 Creatinine 1.1 mg/dl (0.7-1.2) 02/14/18 05:40 Est GFR ( Amer) 58 02/14/18 05:40 Est GFR (Non-Af Amer) 48 02/14/18 05:40 POC Glucose (mg/dL) 121 mg/dL (65-110) H 02/14/18 07:14 Random Glucose 142 mg/dL (70-110) H 02/14/18 05:40 Calcium 9.1 mg/dL (8.4-10.5) 02/14/18 05:40 Triglycerides 131 mg/dL (35-160) 02/13/18 13:00 Cholesterol 214 mg/dL (130-200) H 02/13/18 13:00 LDL Cholesterol Direct 116 mg/dL (0-129) 02/13/18 13:00 HDL Cholesterol 48 mg/dL (29-60) 02/13/18 13:00 TSH 3rd Generation 0.04 mIU/mL (0.46-4.68) L 02/14/18 05:40 Blood Type O POSITIVE 02/13/18 13:00 Antibody Screen Negative 02/13/18 13:00 BBK History Checked Patient has bt 02/13/18 13:00 Attending/Attestation - Attestation I have personally seen and examined this patient.: Yes I have fully participated in the care of the patient.: Yes I have reviewed all pertinent clinical information, including history, physical exam and plan: Yes Notes (Text): 02/14/18 18:23 attending note; Patient seen and examined with resident. Patient is a 77 year old Female with a past medical history of CAD s/p one drug eluting stent in RCA, DM, HTN, Hypothyroid, Asthma, CVA 1994 who was admitted for cardiac catherization. Patient underwent catheterization today on with successful placement of one drug eluting stent in the LAD. patient seen and examined post cardiac cath. Right groin is soft. No hematoma noted. Peripheral pulses intact. patient is stable for discharge. patient will follow up with PMD Dr. Mariscal. Patient will follow-up with carbon electrodes supervisor Dr. Tsai in 1 week. patient does not need any new prescriptions. Has all the medications at home. med reconciliation done. Medication compliance insisted in detail. 02/14/18 18:25
--- NOTE | 2018-02-18 13:22 | CARDCATH ---
Copied To: Elio Tsai MD Attending MD: Elio Tsai MD PROCEDURE DATE: 02/13/2018 PROCEDURE: Left anterior descending coronary artery balloon angioplasty and drug-eluting stent placement. CLINICAL INDICATIONS: 1. Angina. 2. Abnormal stress test. 3. Coronary artery disease, status post stent placement. 4. Hypertension. 5. Hyperlipidemia. 6. Diabetes. REFERRING PHYSICIAN: Eda Venegas MD PERFORMING PHYSICIAN: Elio Tsai MD DESCRIPTION OF PROCEDURE: After informed consent, patient was prepped and draped in the usual sterile fashion. A 2% lidocaine was given in the right groin for local anesthesia. Using micropuncture technique, a 6-Bulgarian sheath was introduced into right common femoral artery. Patient was preloaded with aspirin, Plavix, and IV heparin. ACT was maintained above 250 throughout the procedure. An XBLAD 3.5, 6-Bulgarian guided catheter was engaged into left main coronary artery. Contrast injected and left coronary angiogram was done. Left coronary angiogram has demonstrated 85% to 90% calcific stenosis from proximal to mid LAD. There was ELVI-2 flow noted beyond the lesion. Left anterior descending coronary artery was threaded with Runthrough coronary wire. The proximal and mid LAD lesions were predilated using 2.25 x 20 Compliant balloon. The proximal to mid LAD was stented using 2.5 x 34 Resolute Ander drug-eluting stent. Excellent final angiographic results with a brisk ELVI-3 flow noted postprocedure. No complications noted. CONCLUSION: Successful balloon angioplasty and drug-eluting stent placement of proximal and mid LAD calcific lesions. Postprocedure, Perclose suture deployed with excellent hemostasis. Patient will be transferred to overnight observation for further management. RECOMMENDATIONS: Continue post angioplasty care. Dual antiplatelet therapy for one year, followed by medical management for coronary artery disease. Elio Tsai MD
== END 2018-02-14 12:16 | disposition home or self-care (01) ==
LOC: CATH 12:40 → 2RSO 15:35
PROVIDERS: ADMIT Internal Medicine; ATTEND Internal Medicine
DX: I25.119 Atherosclerotic heart disease of native coronary artery with unspecified angina pectoris (principal); R94.39 Abnormal result of other cardiovascular function study; E03.9 Hypothyroidism, unspecified; E11.9 Type 2 diabetes mellitus without complications; E78.5 Hyperlipidemia, unspecified; I10 Essential (primary) hypertension; J45.909 Unspecified asthma, uncomplicated; Z86.73 Personal history of transient ischemic attack (TIA), and cerebral infarction without residual deficits; Z95.5 Presence of coronary angioplasty implant and graft; Z80.0 Family history of malignant neoplasm of digestive organs
CPT/HCPCS: 36415; 80048; 80061; 82948; 84443; 85025; 85175; 85610; 85730; 86850; 86900; 93005; 99152; C1725; C1760; C1769; C1874; C1887; C1894; C9600; G0378; J0360; J1644; J2250; J2405; J3010; J7030; Q9966; Q9967

== ENCOUNTER 2018-06-06 13:35 | Emergency (ER) | payer MEDICARE, MEDICAID ==
[2018-06-06 13:36] VITALS: BMI 28.3
[2018-06-06 13:47] VITALS: RESP 18
--- NOTE | 2018-06-06 14:12 | ED PDOC ---
Arrival/HPI - General Historian: Patient, Family (Daughter) - History of Present Illness Narrative History of Present Illness (Text): 06/06/18 14:07 78 y o female PMhx asthma, CAD, HTN, DM, HLD, prior MS (1979), prior CVA (1994), cardiac cath with stent placement (12/2017, 01/2018), who presents to the ED c/o coughing x 2 weeks. Reports productive cough is whitish/clear sputum, denies hemoptysis. Denies hx of sick contacts. Reports nighttime awakenings every night for the past week. States she is using her Albuterol inhaler more often without relief. States she went to her PMD for the coughing 5 days ago, who ordered her a CXR and gave her Flonase, OTC decongestant, and started her on Symbicort. Pt states she is not feeling better despite the new prescriptions she was given. States she tried to call her PMD twice to get the CXR results, was unable to because he was not in the office, and then was told to come to the ED by the spa receptionist. Denies fever or chills. Reports waking up with profuse sweating every day this week. Admits to associated pleuritic chest pain that worsens with coughing. Denies headache, dizziness, shortness of breath, n/v/d/c, abd pain, urinary complaints, or other symptoms. PMhx: asthma, CAD, HTN, DM, HLD, prior MS (1979), prior CVA (1994), cardiac cath with stent placement (12/2017, 01/2018) PSurgHx: R breast cyst removal (2002), C/s (1979), hemorrhoidectomy Allergies: NKDA Home meds: Flonase, Symbicort 160/4.5 2 puffs bid, Cozaar 100 mg daily, Plavix 75 mg daily, Lopressor 25 mg bid, Synthroid 75 mcg daily Fam hx: Dad - CVA, at age 48; Brother - at age 11, cardiomyopathy; Mom - colon ca Soc hx: denies smoking, EtOH, or illicit drug use PMD: Dr. Mariscal Time/Duration: > week (2) Symptom Onset: Gradual Symptom Course: Worsening Quality: Unable to Describe Activities at Onset: Rest, Light Context: Home <Hunter Solorio - Last Filed: 06/06/18 16:23> <Jo Tracey - Last Filed: 06/06/18 18:09> - General Chief Complaint: Cough, Cold, Congestion Past Medical History - Provider Review Nursing Documentation Reviewed: Yes - Travel History Have you recently traveled outside [place] w/in the past 3 mons?: No - Infectious Disease Hx of Infectious Diseases: None - Tetanus Immunization Tetanus Immunization: Unknown - Cardiac Hx Hypertension: Yes Hx Pacemaker: No - Pulmonary Hx Asthma: Yes Hx Pneumonia: Yes - Neurological Hx Paralysis: No - HEENT Hx HEENT Disorder: No - Renal Hx Dialysis: No - Endocrine/Metabolic Hx Hyperthyroidism: Yes Hx Hypothyroidism: Yes - Hematological/Oncological Hx Blood Transfusions: No - Integumentary Hx Dermatological Disorder: Yes Other/Comment: bilateral leg edema +2 more to right than left - Musculoskeletal/Rheumatological Hx Musculoskeletal Disorders: No - Gastrointestinal Hx Gastrointestinal Disorders: No - Genitourinary/Gynecological Hx Genitourinary Disorders: No Hx Reproductive Disorders: No - Psychiatric Hx Emotional Abuse: No Hx Physical Abuse: No Hx Substance Use: No - Surgical History Hx Coronary Stent: Yes - Anesthesia Hx Anesthesia Reactions: No Hx Malignant Hyperthermia: No - Suicidal Assessment Feels Threatened In Home Enviroment: No <Hunter Solorio - Last Filed: 06/06/18 16:23> Family/Social History - Physician Review Nursing Documentation Reviewed: Yes Family/Social History: CVA/TIA, Neoplasm/Cancer Smoking Status: Never Smoked Hx Alcohol Use: No Hx Substance Use: No Hx Substance Use Treatment: No <Hunter Solorio - Last Filed: 06/06/18 16:23> Allergies/Home Meds <Hunter Solorio - Last Filed: 06/06/18 16:23> <Jo Tracey - Last Filed: 06/06/18 18:09> Allergies/Adverse Reactions: Allergies No Known Allergies Allergy (Verified 06/06/18 13:47) Home Medications: Home Meds Medication Instructions Recorded Confirmed RX: Levothyroxine [Synthroid] 125 mcg PO DAILY 03/21/18 06/06/18 RX: Simvastatin 10 mg PO HS 03/21/18 06/06/18 Review of Systems - Physician Review All systems were reviewed & negative as marked: Yes - Review of Systems Constitutional: Fatigue, Night Sweats. absent: Weight Change, Fevers Eyes: absent: Vision Changes Respiratory: Cough, Sputum. absent: SOB, Wheezing Cardiovascular: absent: Chest Pain, Palpitations, Edema, WYATT Gastrointestinal: absent: Abdominal Pain, Stool Changes, Constipation, Diarrhea, Nausea, Vomiting, Appetite Changes Musculoskeletal: absent: Myalgias Skin: absent: Rash, Pruritis Neurological: absent: Headache, Dizziness, Focal Weakness, Gait Changes Endocrine: Diaphoresis Hemo/Lymphatic: absent: Adenopathy <Hunter Solorio - Last Filed: 06/06/18 16:23> Physical Exam Vital Signs Reviewed: Yes Vital Signs Temp Pulse Resp BP Pulse Ox 06/06/18 13:45 97.8 F 69 18 176/79 H 97 Temperature: Afebrile Blood Pressure: Hypertensive Pulse: Regular Respiratory Rate: Normal Appearance: Positive for: Non-Toxic, Comfortable, Ill-Appearing Pain Distress: None Mental Status: Positive for: Alert and Oriented X 3 - Systems Exam Head: Present: Atraumatic, Normocephalic Pupils: Present: PERRL Extroacular Muscles: Present: EOMI Conjunctiva: Present: Normal Ears: Present: Erythema (In R ear), Fluid (in R ear) Mouth: Present: Moist Mucous Membranes Pharnyx: No: ERYTHEMA, EXUDATE Nose (Internal): Present: Rhinorrhea Neck: Present: Normal Range of Motion. No: JVD, Lymphadenopathy Respiratory/Chest: Present: Clear to Auscultation, Good Air Exchange, Wheezes (Minimal wheezes auscultated in all lung gloria). No: Respiratory Distress, Accessory Muscle Use, Rales, Rhonchi Cardiovascular: Present: Regular Rate and Rhythm, Normal S1, S2. No: Murmurs, Rub, Gallop Abdomen: Present: Normal Bowel Sounds. No: Tenderness, Distention, Mass/Organomegaly Upper Extremity: Present: Normal Inspection, Normal ROM, NORMAL PULSES, N eurovascularly Intact, Capillary Refill < 2s, Norm 2-Pt Discrimination. No: Cyanosis, Edema, Temperature Abnormalties Lower Extremity: Present: Normal Inspection, NORMAL PULSES, Normal ROM, Neurovascularly Intact, Capillary Refill < 2 s. No: Edema, Temperature Abnormalties Neurological: Present: GCS=15, CN II-XII Intact, Speech Normal, Motor Func Grossly Intact, Normal Sensory Function, Gait Normal Skin: Present: Warm, Dry, Normal Color. No: Rashes Psychiatric: Present: Alert, Oriented x 3, Normal Insight, Normal Concentration <Hunter Solorio - Last Filed: 06/06/18 16:23> Vital Signs Temp Pulse Resp BP Pulse Ox 06/06/18 13:45 97.8 F 69 18 176/79 H 97 <Jo Tracey Nilson - Last Filed: 06/06/18 18:09> Medical Decision Making ED Course and Treatment: 06/06/18 14:41 78 y o female PMhx asthma, CAD, HTN, DM, HLD, prior MS (1979), prior CVA (1994), cardiac cath with stent placement (12/2017, 01/2018), presenting with coughing x 2 weeks. R/o PNA, acute bronchitis. Plan: -Labs -CXR -Duonebs -Prednisone -IVF Will continue to monitor. 06/06/18 16:23 Pt reassessed, states she is feeling better s/p duonebs, prednisone, and IVF. Chest X-ray demonstrates no acute findings. CBC, CMP wnl. Random glucose on CMP 206. Will discharge pt to home at this time. Given scripts for Z-pac and prednisone. Advised to use nebulizer treatment and albuterol inhaler at home as needed for shortness of breath. Instructed to f/u with her PMD within 2-3 days of ER discharge. Instructed to call her PMD or return to the Emergency department if her symptoms recur or worsen. All questions and concerns addressed with pt and pt's family at bedside; all are agreeable to treatment course. <Hunter Solorio - Last Filed: 06/06/18 16:23> ED Course and Treatment: 06/06/18 18:08 Patient seen by resident and then evaluated by me. She reports chronic cough x 2 weeks with productive sputum. Denies chest pain. Leg swelling. Cxray negative. Slight wheezing on exam and improved after steroids and duonebs given in emergency department . Will dc with jonny due to chronic cough and steroids for asthma exacerbation - Lab Interpretations Lab Results: 06/06/18 15:22 06/06/18 15:22 Lab Results 06/06/18 15:22: Sodium 135, Potassium 4.1, Chloride 103, Carbon Dioxide 24, Anion Gap 12, BUN 18, Creatinine 1.2, Est GFR ( Amer) 52, Est GFR (Non-Af Amer) 43, Random Glucose 216 H, Calcium 9.3, Total Bilirubin 0.6, AST 39 H D, ALT 29, Alkaline Phosphatase 71, Total Protein 7.6, Albumin 4.2, Globulin 3.4, Albumin/Globulin Ratio 1.2 06/06/18 15:22: WBC 5.5, RBC 3.82, Hgb 12.1, Hct 36.4, MCV 95.3, MCH 31.7, MCHC 33.2, RDW 13.3, Plt Count 238, MPV 9.4, Gran % 57.0, Lymph % (Auto) 31.5, [place] % (Auto) 8.4 H, Eos % (Auto) 2.9, Baso % (Auto) 0.2, Gran # 3.14, Lymph # (Auto) 1.7, [place] # (Auto) 0.5, Eos # (Auto) 0.2, Baso # (Auto) 0.01 - RAD Interpretation Radiology Orders: 06/06/18 14:12 CHEST TWO VIEWS (PA/LAT) [RAD] Stat - Medication Orders Current Medication Orders: Discontinued Medications Albuterol/Ipratropium (Duoneb 3 Mg/0.5 Mg (3 Ml) Ud) 3 ml IH Q15M GAUDENCIO Stop: 06/06/18 14:46 Last Admin: 06/06/18 15:52 Dose: 3 ml Albuterol/Ipratropium (Duoneb 3 Mg/0.5 Mg (3 Ml) Ud) 3 ml IH Q15M GAUDENCIO Stop: 06/06/18 15:46 Last Admin: 06/06/18 15:28 Dose: Not Given Non-Admin Reason: duplicate Sodium Chloride (Sodium Chloride 0.9%) 500 mls @ 999 mls/hr IV .Q31M STA Stop: 06/06/18 14:44 Last Admin: 06/06/18 15:21 Dose: 999 mls/hr eMAR Start Stop Document 06/06/18 15:21 [email or web address] (Rec: 06/06/18 15:26 [email or web address] [id number]) Intravenous Solution Start Date 06/06/18 Start Time 15:26 Prednisone (Prednisone Tab) 60 mg PO STAT ONE Stop: 06/06/18 15:02 Last Admin: 06/06/18 15:27 Dose: 60 mg <Jo Tracey - Last Filed: 06/06/18 18:09> Disposition/Present on Arrival - Present on Arrival History of DVT/PE: No History of Uncontrolled Diabetes: No Urinary Catheter: No History of Decub. Ulcer: No History Surgical Site Infection Following: None <Huntre Solorio - Last Filed: 06/06/18 16:23> - Present on Arrival Any Indicators Present on Arrival: No - Disposition Have Diagnosis and Disposition been Completed?: Yes Disposition Time: 16:15 <Jo Tracey - Last Filed: 06/06/18 18:09> - Disposition Diagnosis: Asthma exacerbation, Upper respiratory infection, Chronic cough Disposition: HOME/ ROUTINE Condition: IMPROVED Discharge Instructions (ExitCare): Acute Bronchitis, Cough, Adult (DC) Print Language: YI Additional Instructions: Please follow-up with your primary care physician (Dr. Mariscal) within 2-3 days of hospital discharge. Please take Prednisone as prescribed daily for the next 3 days. Please take antibiotic as prescribed for the next 5 days. Can use nebulizer treatments and albuterol inhaler at home as needed for shortness of breath and for symptoms. Can resume home medications as prescribed by your primary care physician. Should your symptoms recur or worsen, please call your primary care physician or report to your nearest emergency department. Prescriptions: RX: Azithromycin 250 mg PO DAILY #6 tablet RX: Prednisone 50 mg PO DAILY #3 tablet Referrals: Navneet Mariscal DO [Family Provider] - Follow up with primary Forms: [employer] (Brazilian)
[2018-06-06] MEDS ORDERED: MethylPREDNISolone 40 mg Vial IVP STA (14:14)
[2018-06-06] MEDS ORDERED: Sodium Chloride 0.9% 500 ML IV STA (14:14)
[2018-06-06] MEDS: Albuterol-Ipratrop 3 mg / 0.5 (3 ml) UD IH SCH ×4 (15:10→15:52)
--- NOTE | 2018-06-06 15:34 | RAD ---
Date of service: 06/06/2018 HISTORY: Cough for 2 weeks COMPARISON: 07/26/2017 TECHNIQUE: Chest PA and lateral FINDINGS: LINES AND TUBES: None. LUNG AND PLEURA: The lungs are well inflated and clear. No pleural effusion or pneumothorax. HEART AND MEDIASTINUM: The heart is not enlarged. No aortic atherosclerotic calcification present. There is unfolding of the aorta. The hilar and mediastinal contours are within normal limits. SKELETAL STRUCTURES: The bony structures are within normal limits for the patient's age. VISUALIZED UPPER ABDOMEN: Normal. OTHER FINDINGS: None. IMPRESSION: No active pulmonary disease.
[2018-06-06 15:48] LABS: BASO # 0.01 K/mm3 (0.0-2.0); BASO % 0.2 % (0.0-3.0); EOS # 0.2 (0.0-0.7); EOS % 2.9 % (1.5-5.0); GRAN # 3.14 (1.4-6.5); HEMOGLOBIN 12.1 g/dL (12.0-16.0); LYMPH # 1.7 (1.2-3.4); LYMPH % 31.5 % (22.0-35.0); MEAN CELL VOLUME 95.3 fl (80.0-105.0); MEAN CORPUSCULAR HEMOGLOBIN 31.7 pg (25.0-35.0); MEAN CORPUSCULAR HGB CONC 33.2 g/dl (31.0-37.0); MEAN PLATELET VOLUME 9.4 fl (7.0-11.0); MONO # 0.5 (0.1-0.6); MONO % 8.4 % (1.0-6.0); RBC 3.82 10^6/uL (3.5-6.1); RED CELL DISTRIBUTION WIDTH 13.3 % (11.5-14.5); WHITE BLOOD COUNT 5.5 10^3/uL (4.5-11.0)
[2018-06-06 16:10] LABS: ALB/GLOB RATIO 1.2 (1.1-1.8); ALBUMIN 4.2 g/dL (3.0-4.8); CALCIUM 9.3 mg/dL (8.4-10.5)
[2018-06-06 16:28] VITALS: BP 146/87; TEMP 98; O2SAT 99
[2018-06-06 16:29] VITALS: PULSE 76
== END 2018-06-06 16:28 | disposition home or self-care (01) ==
LOC: ED 13:35
DX: J45.901 Unspecified asthma with (acute) exacerbation (principal); J06.9 Acute upper respiratory infection, unspecified
CPT/HCPCS: 71046; 80053; 85025; 99283; J7040

== ENCOUNTER 2018-08-20 12:36 | Outpatient (CLI) | payer MEDICARE, MEDICAID | END 2018-08-20 12:37 | disposition home or self-care (01) | LOC: RAD 12:36 ==